=== PATIENT | male | born 1935 | race Caucasian/White ===

== ENCOUNTER 2017-04-02 09:27 | Outpatient (CLI) | payer MEDICARE, OTHER ==
--- NOTE | ~2017-04-02 | HEMODYNAMI ---
PATIENT:CROW WALKER MEDICAL RECORD: [id number] : 33 LOCATION:[facility] ADMISSION DATE: 04/02/17 Generatedon:04/02/201711:51 Patient name: CROW WALKER Patient #: [id number] SSN: DO B: 1935 Date of study: 04/02/2017 Page: Of Hemodynamic Procedure Report Patient Data Patient Demographics Procedure consent was obtained First Name: CROW Gender: Male Last Name: AARON : 1935 Middle Initial: [place] Age: 81 year(s) Patient #: [id number] Race: Additional ID: [id number] Contact details [address]: [address] [place] [address] State: [place] City: [place] Zip code: [address] Past Medical History History of disease Date Diagnosis Comments CAD Previous HI Hypertension Allergies Allergen Reaction Date Comments Reported Other allergy 05/19/2016 PCN, Streptokinase, Iodine Iodine 05/19/2016 Penicillins 05/19/2016 Other allergy 04/02/2017 iodine, Penicillin, Streptokinase, Luis Miguel Inhibitors Admission Admission Data Admission Date: 04/02/2017 Admission Time: 9:27 Arrival Date: 04/02/2017 Arrival Time: 0:00 Admit Source: Other Height (in.): 70 BSA: 2.1 (m2) Height (cm.): 177.8 BMI: 29.13 (kg/m2) Weight (lbs.): 203 Weight (kg.): 92.08 Lab Results Lab Result Date: 04/02/2017 Lab Result Time: 0:00 Biochemistry Name Units Result Min Max BUN mg/dl 21 --(----)-* 7 18 Creatinine mg/dl 1.4 --(----)*- 0.6 1.3 CBC Name Units Result Min Max Hemoglobin g/dl 14.2 --(*---)-- 13.5 17.5 Procedure Procedure Types Cath Procedure Diagnostic Procedure [facility] w/Coronaries FFR/IVUS Intra-Coronary IVUS Initial PCI Procedure Coronary Stent Initial Miscellaneous Procedures Moderate Sedation up to 15 minutes Procedure Description Procedure Date Procedure Date: 04/02/2017 Procedure Start Time: 11:32 Procedure End Time: 11:47 Procedure Staff Name Function Slick Dietz MD Performing Physician Billie Mercado RT Scrub Ailin Romero RT Monitor Ruy Pepe RN Nurse Indication Angina Procedure Data Cath Procedure Fluoroscopy Diagnostic fluoroscopy Total fluoroscopy Time: 2.8 time: 2.8 min min Diagnostic fluoroscopy Total fluoroscopy dose: 299 dose: 299 mGy mGy Contrast Material Contrast Material Type Amount (ml) Isovue 300 69 Entry Location Entry Primary Successful Side Size Upsize Upsize Entry Closure Reinoso ccessful Closure Location (Fr) 1 (Fr) 2 (Fr) Remarks Device Remarks Radial Right 6 Fr Mechanical artery Short Compression Estimated blood loss: 5 ml Diagnostic catheters Device Type Used For End Catheter Placement Diagnostic Terumo 5Fr Multi-vessel Yale 110cm catheter Angiography Procedure Complications No complications Procedure Medications Medication Administration Route Dosage Oxygen NC 2 l/min Heparin Flush Bag added to field 2 bags (1000units/500ml NS) 0.9% NaCl I.V. 100 ml/hr Fentanyl I.V. 50 mcg Versed I.V. 1 mg Radial Cocktail added to field 1 syringe (Verapomil 2mg/Nitro 400mcg/Heparin 1500units) Radial Cocktail I.A. 1 syringe (Verapomil 2mg/Nitro 400mcg/Heparin 1500units) Heparin Bolus I.V. 4000 units Integrilin (Bolus I.V. 8.5 ml 2mg/ml) Integrilin (Bolus wasted 1.5 ml 2mg/ml) Plavix P.O. 600 mg Hemodynamics Rest BSA: 2.1 (m2) HGB: 14.2 (g/dl) O2 Consumption: Estimated: 236.76 (ml/min) O2 Con sumption indexed: Estimated:112.74 (ml/min/m) Heart Rate: 67 (bpm) Pressure Samples Time Site Value (mmHg) Purpose Heart Use Rate(bpm) 11:35 LV 147/12,9 Snapshot 81 Snapshots Pre Cath Intra NCS Post Cath Vital Signs Time Heart Resp SPO2 NIBP (mmHg) Rhythm Pain Sedation Rate (ipm) (%) Status Level (bpm) 11:22:18 79 18 100 187/104(148) NSR 0 (11) 10(A) , No pain 11:26:59 77 16 100 179/103(152) NSR 0 (11) 10(A) , No pain 11:31:35 80 18 98 179/108(154) NSR 0 (11) 10(A) , No pain 11:35:57 81 16 96 144/94(126) NSR 0 (11) 9(A) , No pain 11:40:20 80 16 97 145/88(122) NSR 0 (11) 9(A) , No pain 11:44:44 78 17 99 157/89(133) NSR 0 (11) 9(A) , No pain 11:48:11 79 19 98 161/91(138) NSR 0 (11) 9(A) , No pain Medications Time Medication Route Dose Verified Delivered Reason Note s Effectiveness by by 11:24:35 Oxygen NC 2 l/min Slick Redmond Per physician J Luis Pepe RN 11:25:25 Heparin Flush added 2 bags Slick Redmond used for Bag to J Luis Pepe RN procedure (1000units/500ml field NS) 11:26:37 0.9% NaCl I.V. 100 Slick Redmond Per physician ml/hr J Luis Pepe RN 11:31:56 Fentanyl I.V. 50 mcg Slick Redmond for sedation J Luis Pepe RN 11:32:06 Versed I.V. 1 mg Slick Redmond for sedation J Luis Pepe RN 11:34:59 Radial Cocktail added 1 Slick Redmond used for (Verapomil to syringe J Luis Pepe RN procedure 2mg/Nitro field 400mcg/Heparin 1500units) 11:35:04 Radial Cocktail I.A. 1 Slick Kruger for (Verapomil syringe J Luis Dietz MD vasodilation 2mg/Nitro 400mcg/Heparin 1500units) 11:43:10 Heparin Bolus I.V. 4000 Slick Redmond for units J Luis Pepe RN anticoagulation 11:43:22 Integrilin I.V. 8.5 ml Slick Redmond for (Bolus 2mg/ml) J Luis Pepe RN antiplatelet therapy 11:43:31 Integrilin wasted 1.5 ml Slick Redmond for (Bolus 2mg/ml) J Luis Pepe RN antiplatelet therapy 11:49:03 Plavix P.O. 600 mg Slick Pepe RN antiplatelet therapy Procedure Log Time Note 10:41:57 Patient Height : 177.8 inches 10:41:59 Patient Weight : 92.08 lbs 10:42:02 Admit Source: Other 10:42:05 Arrival Date: 04/02/2017 12:00:00 AM 10:51:53 Diagnostic Cath Status : Elective 10:52:09 Indication : Angina 10:52:13 Ailin Nick RT(R) sent for patient. Start room use. 10:52:14 Time tracking: Regular hours 10:52:19 Plan of Care:Hemodynamics will remain stable., Cardiac rhythm will remain stable., Comfort level will be maintained., Respiratory function will remain adequate., Patient/ family verbilizes understanding of procedure., Procedure tolerated without complication., Recovers from procedure without complications.. 11:12:49 Patient received from Pre/Post Procedure Room to [facility] 3 Alert and oriented. Tansferred to table in Supine position. 11:12:50 Warm blankets applied, and charlotte hugger turned on for patient comfort. 11:12:51 Correct patient and procedure confirmed by team. 11:12:52 Signed procedure consent form obtained from patient. 11:20:54 ECG and BP/O2 sat monitors applied to patient. 11:20:55 Vital chart was started 11:21:02 Baseline sample Acquired. 11:21:08 Rhythm: sinus rhythm 11:21:10 Full Disclosure recording started 11:21:57 H&P Date Dictated: 03/29/2017 Within 30 days and on chart., H&P Addendum completed by physician on day of procedure. (MUST COMPLETE FOR ALL OUTPATIENTS). 11:22:11 Pre-procedure instructions explained to patient. 11:22:12 Pre-op teaching completed and patient verbalized understanding. 11:22:13 Family in waiting room. 11:22:15 Patient NPO since Midnight. 11:24:35 Oxygen 2 l/min NC was administered by Ruy Pepe RN; Per physician; 11:25:25 Heparin Flush Bag (1000units/500ml NS) 2 bags added to field was administered by Ruy Pepe RN; used for procedure; 11:26:29 Patient allergic to Other allergyiodine, Penicillin, Streptokinase, Luis Miguel Inhibitors 11:26:32 Is the patient allergic to Iodine/contrast media? Yes. 11:26:33 Was the patient premedicated? Yes 11:26:34 Is patient on blood thinner?No 11:26:36 Patient diabetic? No. 11:26:37 0.9% NaCl 100 ml/hr I.V. was administered by Ruy Pepe RN; Per physician; 11:26:39 Previous problem with sedation/anesthesia? No ? 11:26:41 Snore? Yes 11:26:43 Sleep apnea? No 11::44 Deviated septum? No 11:26:45 Opens mouth fully? Yes 11:26:46 Sticks out tongue? Yes 11::53 Airway obstruction? Yes emphysema, pulmonary fibrosis 11:27:18 Dentures? Yes in tight 11:27:22 Pre procedure: right dorsailis pedis pulse 1+ Palpable, but thready & weak; easily obliterated 11:27:24 Pre procedure: left dorsailis pedis pulse 1+ Palpable, but thready & weak; easily obliterated 11:27:26 Patient pain scale 0/10 ?. 11:27:44 IV patent on arrival in left forearm with 0.9% NaCl at [facility]. 11:29:40 Lab Result : BUN 21 mg/dl 11::40 Lab Result : Creatinine 1.4 mg/dl 11::40 Lab Result : Hemoglobin 14.2 g/dl 11::57 Lab results completed and on chart. 11:30:00 Right Radial & Right Groin area was prepped with chlora-prep and draped in sterile fashion 11:30: Alarms reviewed by R. N. 11:30: Sharps counted by scrub and verified by R.N. 11:30:03 Physician arrived 11:30:03 --------ALL STOP TIME OUT------ 11:30:04 Final Timeout: patient, procedure, and site verified with staff and physician. All members of the team are in agreement. 11:30:07 Right Radial & Right Groin site verified by team. 11:30:09 Physical assessment completed. ASA score P 2 - A patient with mild systemic disease as per Slick Dietz MD. 11:30:12 Sedation plan: IV Moderate Sedation Versed, Fentanyl 11:30:17 Procedure started. 11:31:56 Fentanyl 50 mcg I.V. was administered by Ruy Pepe RN; for sedation; 11:32:06 Versed 1 mg I.V. was administered by Ruy Pepe RN; for sedation; 11:32:19 Use device set Radial Dx 11:32:20 Acist Syringe opened to sterile field. 11:32:20 Medline Cath Pack opened to sterile field. 11:32:21 Bag Decanter opened to sterile field. 11:32:21 Terumo 6Fr Slender Glidesheath opened to sterile field. 11:32:21 St Mason 260cm J .035 wire opened to sterile field. 11:32:22 Acist Hand Control opened to sterile field. 11:32:22 Acist Manifold opened to sterile field. 11:32:22 Tegaderm 4 x 4 opened to sterile field. 11:32:23 MBrace Wrist Support opened to sterile field. 11:32:30 Local anesthetic to right radial artery with Lidocaine 2% by Slick Dietz MD.INITIAL ACCESS ONLY 11:32:56 A 6 Fr Short sheath was inserted into the Right Radial artery 11:34:52 A Diagnostic Terumo 5Fr Yale 110cm catheter was advanced over the wire and used for Multi-vessel Angiography. 11:34:59 Radial Cocktail (Verapomil 2mg/Nitro 400mcg/Heparin 1500units) 1 syringe added to field was administered by Ruy Pepe RN; used for procedure; 11:35:04 Radial Cocktail (Verapomil 2mg/Nitro 400mcg/Heparin 1500units) 1 syringe I.A. was administered by Slick Dietz MD; for vasodilation; 11:35:38 LV hemodynamics recorded. 11:35:40 LV gram done using SHANKAR 11:35:46 Injector settings: Ml/sec: 5, Volume: 15, 11:35:52 EF : 50 % 11:36:16 RCA angiography performed. 11:36:19 Injector settings: Ml/sec: 3, Volume: 6, 11:37:39 Cordis 6FR XBLAD 3.5 SH guide catheter opened to sterile field. 11:37:44 Catheter removed. 11:37:53 6 Fr xblad 3.5 sh guide catheter was inserted over the wire 11:38:28 LCA angiography performed. 11:38:30 Injector settings: Ml/sec: 3, Volume: 6, 11:39:44 Newport Hitchcock Eagleye IVUS Catheter opened to sterile field. 11:39:45 Diaz Whisper J 300cm 0.014 guide wire opened to sterile field. 11:39:45 Tongal BasixCompak Inflation Kit opened to sterile field. 11:39:56 whisper wire advanced. 11:39:58 Wire advanced across lesion. 11:40:01 IVUS catheter advanced over wire. 11:41:32 IVUS pass to LAD lesion performed. 11:41:37 IVUS catheter removed over wire. 11:43:10 Heparin Bolus 4000 units I.V. was administered by Ruy Pepe RN; for anticoagulation; 11:43:22 Integrilin (Bolus 2mg/ml) 8.5 ml I.V. was administered by Ruy Pepe RN; for antiplatelet therapy; 11:43:25 Inflation Number: 1 A Retracetronic Integrity 3.5 X 12 stent was prepped and advanced across the Prox LAD. The stent was deployed at 19 [place] for 0:10 (min:sec). 11:43:31 Integrilin (Bolus 2mg/ml) 1.5 ml wasted was administered by Ruy Pepe RN; for antiplatelet therapy; 11:43:42 Stent catheter was removed intact over wire. 11:43:45 Wire removed. 11:43:45 Guide catheter removed. 11:44:10 Terumo TR Band Standard opened to sterile field. 11:44:34 Sheath removed intact; hemostasis achieved with Mechanical Compression to the Right Radial artery. 11:44:44 Procedure ended.(Physican Out) 11:46:10 Fluoroscopy time 02.80 minutes. 11:46:16 Fluoroscopy dose: 299 mGy 11:46:16 Flurop Dose total: 299 11:46:19 Contrast amount:Isovue 300 69ml. 11:46:20 Sharps counted by scrub and verified by R.N. 11:46:24 TR band inflated with 10cc of air. 11:46:25 Insertion/operative site no bleeding no hematoma. 11:46:30 Post right radial artery:stable 11:46:32 Post Procedure Pulses reassessed and unchanged 11:46:34 Post procedure rhythm: unchanged. 11:46:37 Estimated blood loss: 5 ml 11:46:38 Post procedure instruction explained to patient.Patient verbalizes understanding. 11:46:38 Patient needs reinforcement of post procedure teaching. 11:46:56 Procedure type changed to Cath procedure, Diagnostic procedure, LHC, [facility] w/Coronaries, FFR/IVUS, Intra-Coronary IVUS Initial, PCI procedure, Coronary Stent Initial, Miscellaneous Procedures, Moderate Sedation up to 15 minutes 11:46:58 Procedure and supply charges have been captured, reviewed, submitted and are correct. 11:47:02 Procedure Complication : No complications 11:47:05 Vital chart was stopped 11:47:05 See physician's report for complete and final results. 11:47:08 Report given to Pre/Post Procedure Room. 11:47:13 Patient transfered to Pre/Post Procedure Room with Stretcher. 11:47:15 Procedure ended. 11:47:15 Full Disclosure recording stopped 11:47:23 ACC-PCI Only Patient was given prescriptions, or instructed by Slick Dietz MD to start/continue the following medications upon discharge: Plavix 11:47:25 End room use (Document Last) 11:49:03 Plavix 600 mg P.O. was administered by Ruy Pepe RN; for antiplatelet therapy; Intervention Summary Intervention Notes Time ActionType Lesion and Equipment Action# Pressure Duration Attributes Used 11:43:25 Place stent Prox LAD Medtronic 1 19 00:10 Integrity 3.5 X 12 stent Device Usage Item Name Manufacture Quantity Catalog Hospital Part Current Minimal Lot# / Number Charge Number Stock Stock Serial# Code Acist Acist 1 92689 762493 627429 083575 20 Syringe Medical Systems Inc Medline Cardinal 1 [id number] 008244 20913 179479 5 Cath Pack Health Bag Microtek 1 2001S 118840 90895 861512 5 [employer]. Terumo 6Fr Terumo 1 [id number] 198072 919531 332040 [address] St Mason 1 699970 226715 907140 635304 30 260cm J .035 wire Acist Hand Acist 1 71956 258770 905925 092502 5 Control WiOffer Systems Inc Acist Acist 1 60275 491620 339681 639896 5 Gumroad [employer] Systems Twijector Tegaderm 4 3M 1 1626W 495377 675088 663431 5 x 4 MBrace Advanced 1 140-0250-00 572894 93887 929322 5 Wrist Vascular Support Dynamics Diagnostic Terumo 1 20-6676 293078 869200 262882 5 Terumo 5Fr Yale 110cm catheter Cordis 6FR Cardinal 1 [id number] 377678 610375 062860 3 XBLAD 3.5 Health SH guide catheter Newport Newport 1 [id number] 549045 445406 070783 8 Hitchcock Eagleye IVUS Catheter Diaz Diaz 1 [id number] 929476 796772 107862 5 Whisper J Vascular 300cm 0.014 guide wire Merit Merit 1 [id number] 515080 992259 238996 15 BasixCompak Medical Inflation Kit Medtronic Medtronic 1 [id number] 980366 504014 5 [id number] Integrity 3.5 X 12 stent Terumo TR Terumo 1 [id number] 462741 049654 824024 40 Band Standard Signature Audit Yale Stage Time Signature Unsigned Intra-Procedure 04/02/2017 Ailin Romero 11:51:33 AM RT(R) Signatures Monitor : Ailin Romero RT Signature : Date : Time : [facility] [address] [place] [address]
[~2017-04-02 09:27] MED LIST: ASPIRIN EC81 MG PO; BETAPACE 120 M120 MG PO; GLUCOPHAGE850 MG PO; MEVACOR40 MG PO; MIRALAX17 GM PO; MULTI-DAY VITAM1 TAB PO; NORVASC10 MG PO; PLAVIX75 MG PO; PREDNISONE20 MG; RYTHMOL150 MG PO; STOOL SOFTENER PO; TENEX1 MG PO
[2017-04-02 10:03] VITALS: BP 190/101; BMI 28.7
[2017-04-02 10:17] LABS: HEMATOCRIT 42.7 % (42.0-54.0); HEMOGLOBIN 14.2 g/dL (13.5-17.5); MCH 32.7 pg (26.0-34.0); MCHC 33.3 g/dL (31.0-37.0); MCV 98.4 fL (80.0-100.0); MEAN PLATELET VOLUME 9.8 fL (7.4-10.4); PLATELET COUNT 216 10x3/uL (130-400); RBC 4.34 10x6/uL (4.20-6.10); RDW 17.2 % (11.5-14.5)
[2017-04-02 10:43] LABS: ANION GAP 13.2 mmol/L (8-16); CALCIUM 9.6 mg/dL (8.5-10.1); CARBON DIOXIDE 26.1 mmol/L (21.0-32.0); CREATININE - SERUM 1.4 mg/dL (0.6-1.3); POTASSIUM - SERUM 4.3 mmol/L (3.5-5.1)
[2017-04-02 10:45] LABS: LYMPHOCYTES 55 % (15-50); MONOCYTES 1 % (2-11); NEUTROPHILS 44 % (40-80); PLATELET ESTIMATE NORMAL; SMUDGE CELLS OCC
--- NOTE | 2017-04-02 12:00 | NUR ---
1200 RECIEVED TO ROOM VIA STRETCHER FROM [employer] E[employer] PACKER WITH REPORTS OF ONE STENT TO THE LAD. TR BAND TO R/WRIST WITH SMALL AMOUNT OF BLEEDING NOTED. STAFF TO INSTILL 5 CC AIR FOR A TOTAL OF 15 CC TO TR BAND WILL MONITOR FOR BLEEDING
[2017-04-02] MEDS ORDERED: BAYER CHEWABLE81 MG PO (12:12)
[2017-04-02] MEDS ORDERED: PLAVIX75 MG PO (12:12)
--- NOTE | 2017-04-02 12:15 | NUR ---
TR BAND TO R/WRIST CDI NO BLEEDING NO HEMATOMA NOTED. HR 77 BP 178/96 CHEST PAIN IS DENIED O2 AT 6 LITERS NASAL NO DISTRESS NO COMPLAINTS
--- NOTE | 2017-04-02 13:09 | OP ---
PATIENT NAME: CROW WALKER MEDICAL RECORD: [id number] :33 LOCATION:D.CAT ADMISSION DATE: SURGEON: IRENE CROCKETT MD DATE OF OPERATION: 04/02/2017 PROCEDURES: 1. PTCA stent LAD. 2. Intravascular ultrasound. 3. Left heart catheterization. 4. Selective coronary angiography. 5. Left ventriculogram. INDICATION: Angina and coronary artery disease. PROCEDURE IN DETAIL: After informed consent was obtained and after a detailed explanation of the risks, benefits as well as alternative therapies, the patient elected to proceed with angiogram and angioplasty. The right radial area was prepped and draped in normal sterile fashion. Right radial artery was cannulated via modified Seldinger technique with placement of 6-Bruneian sheath. All catheters exchanged through this sheath. FINDINGS: Left ventriculogram was performed in standard 30-degree SHANKAR view, reveals good cardiac wall motion throughout all segments. Overall ejection fraction 50%. SELECTIVE CORONARY ANGIOGRAPHY: 1. Left main showed no significant angiographic disease. 2. Left anterior descending has 80% stenosis proximally confirmed by intravascular ultrasound. 3. Left circumflex has moderate irregularities, but no flow-limiting stenosis. Previously placed stents is widely patent. 4. Right coronary has moderate irregularities, but no flow-limiting stenosis. Previously placed stents are widely patent. PTCA STENT OF THE LAD: The stent used was a 3.5 x 12 mm Integrity. Result was 0% residual stenosis. OVERALL IMPRESSION: Successful percutaneous transluminal coronary angioplasty stent of the left anterior descending going from 80+ percent initial stenosis to 0% residual. TRANSINT:[id number] Voice Confirmation ID: [id number] DOCUMENT ID: [id number] IRENE CROCKETT MD at 1309 CC: [id number] DICTATION DATE: 04/02/17 1148 [employer] PRODUCTION ASSOCIATE: 04/02/17 [address] [place] [address]
--- NOTE | 2017-04-02 14:22 | NUR ---
VOIDED 400CC VIA URINAL, R WRIST REMAINS C/D/I W NO C/O CHEST PAIN. PULSES PALP X 4. SON AT BEDSIDE.
--- NOTE | 2017-04-02 15:20 | NUR ---
1510 2CC AIR REMOVED FROM R WRIST TR BAND. WILL MONITOR FOR BLEEDING. SITTING UP EATING SANDWICH.
--- NOTE | 2017-04-02 15:50 | NUR ---
2CC AIR REMOVED FROM R WRIST TR BAND. PIV REMOVED FROM LEFT FOREARM WITH BANDAID APPLIED. UP TO BEDSIDE TO DRESS WITH ASSIST FROM DAUGHTER.
--- NOTE | 2017-04-02 15:57 | NUR ---
AMBULATED TO BATHROOM ON HOME OXYGEN. BACK TO BEDSIDE. TR BAND WEANED, TEGADERMA ND 2X2 APPLIED. D/C INSTRUCTIONS DISCUSSED WITH PATIENT AND DAUGHTER AT BEDSIDE. WHEELED OUT VIA WHEELCHAIR.
== END 2017-04-02 15:58 | disposition home or self-care (01) ==
LOC: D.CATH 09:27
PROVIDERS: Internal Medicine Interventional Cardiology
DX: I25.119 Atherosclerotic heart disease of native coronary artery with unspecified angina pectoris (principal); R06.02 Shortness of breath; I07.1 Rheumatic tricuspid insufficiency; Z95.0 Presence of cardiac pacemaker; R53.83 Other fatigue; Z01.812 Encounter for preprocedural laboratory examination

== ENCOUNTER 2018-02-03 14:11 | Outpatient (CLI) | payer MEDICARE, OTHER ==
[~2018-02-03] VITALS: Ht 177.8 cm; Wt 94.5 kg
--- NOTE | ~2018-02-03 | DS ---
PATIENT:CROW COTE :33 MEDICAL RECORD: [id number] DISCHARGE SUMMARY ADMISSION DATE: 02/03/18 DISCHARGE DATE: 02/04/18 DIAGNOSES: 1. Angina. 2. PTCA LAD for in-stent restenosis this admission. 3. Bronchitis. HOSPITAL COURSE: Mr. Cote presents with shortness of breath, cough as well as anginal symptomatology, found to have in-stent restenosis in the mid LAD, underwent successful high pressure PTCA of this. No further anginal symptomatology, started on Augmentin for his bronchitis. He will follow up with [facility] in 3[facility]4 weeks. TRANSINT:[id number] Voice Confirmation ID: [id number] DOCUMENT ID: [id number] IRENE CROCKETT MD at 1752 CC: [id number] DICTATION DATE: 02/04/18 0758 DIRECT MARKETING INTERN: 02/04/18 1259 DIS IN 02/04/18 [id number] [place] [address]
--- NOTE | ~2018-02-03 | HEMODYNAMI ---
PATIENT:CROW WALKER MEDICAL RECORD: [id number] : 33 LOCATION:[facility] D.2119 ADMISSION DATE: 02/03/18 Generatedon:02/03/201815:54 Patient name: CROW WALKER Patient #: [id number] SSN: DO B: 1935 Date of study: 02/03/2018 Page: Of Hemodynamic Procedure Report Patient Data Patient Demographics Procedure consent was obtained First Name: CROW Gender: Male Last Name: AARON : 1935 [facility] Initial: RADHA Age: 82 year(s) Patient #: [id number] Race: Additional ID: [id number] Contact details [address]: [address] [place] [address] State: [place] City: [place] Zip code: [address] Past Medical History History of disease Date Diagnosis Comments CAD Previous [place] Hypertension Allergies Allergen Reaction Date Comments Reported Other allergy 05/19/2016 PCN, Streptokinase, Iodine Iodine 05/19/2016 Penicillins 05/19/2016 Other allergy 04/02/2017 iodine, Penicillin, Streptokinase, Luis Miguel Inhibitors Admission Admission Data Admission Date: 02/03/2018 Admission Time: 14:11 Room #: 2119 Procedure Procedure Types Cath Procedure Diagnostic Procedure [facility] w/Coronaries Sedation Charges Moderate Sedation up to 15 minutes PCI Procedure PTCA PTCA Initial Procedure Description Procedure Date Procedure Date: 02/03/2018 Procedure Start Time: 15:34 Procedure End Time: 15:53 Procedure Staff Name Function Slick Dietz MD Performing Physician Ruy Pepe RN Nurse Davey Cordova RT Scrub Billie Mercado RT Monitor Procedure Data Cath Procedure Fluoroscopy Diagnostic fluoroscopy Total fluoroscopy Time: 3.2 time: 3.2 min min Diagnostic fluoroscopy Total fluoroscopy dose: 829 dose: 829 mGy mGy Contrast Material Contrast Material Type Amount (ml) Isovue 300 87 Entry Location Entry Primary Successful Side Size Upsize Upsize Entry Closure Reinoso ccessful Closure Location (Fr) 1 (Fr) 2 (Fr) Remarks Device Remarks Radial Right 6 Fr Mechanical tr artery Short Compression Estimated blood loss: 10 ml Diagnostic catheters Device Type Used For End Catheter Placement DIAGNOSTIC Arcadia 110cm 5 Procedure Fr catheter ([id number]) Procedure Complications No complications Procedure Medications Medication Administration Route Dosage Oxygen NC 6 l/min Heparin Flush Bag added to field 2 bags (1000units/500ml NS) 0.9% NaCl I.V. 100 ml/hr Radial Cocktail added to field 1 syringe (Verapomil 2mg/Nitro 400mcg/Heparin 1500units) Fentanyl I.V. 25 mcg Versed I.V. 0.5 mg Radial Cocktail I.A. 1 syringe (Verapomil 2mg/Nitro 400mcg/Heparin 1500units) Heparin Bolus I.V. 4000 units Integrilin (Bolus I.V. 8.5 ml 2mg/ml) Integrilin (Bolus I.V. 1.5 ml 2mg/ml) Hemodynamics Rest Heart Rate: 101 (bpm) Pressure Samples Time Site Value (mmHg) Purpose Heart Use Rate(bpm) 15:36 LV 124/13,12 Snapshot 96 Gradients Valve Time Site Site Mean SEP/DFP Peak To Heart Use 1 2 (mmHg) (sec/min) Peak Rate (mmHg) (bpm) Aortic 15:36 LV AO 98 Snapshots Pre Cath Intra NCS Post Cath Vital Signs Time Heart Resp SPO2 NIBP (mmHg) Rhythm Pain Sedation Rate (ipm) (%) Status Level (bpm) 15:26:21 90 17 87 181/97(165) NSR 0 (11) 10(A) , No pain 15:30:39 94 16 87 177/106(156) NSR 0 (11) 10(A) , No pain 15:35:01 101 16 90 175/118(153) NSR 0 (11) 10(A) , No pain 15:39:25 92 17 90 152/89(138) NSR 0 (11) 9(A) , No pain 15:44:53 93 17 90 152/93(136) NSR 0 (11) 9(A) , No pain 15:50:20 90 16 89 166/92(150) NSR 0 (11) 9(A) , No pain Medications Time Medication Route Dose Verified Delivered Reason Note s Effectiveness by by 15:18:42 Oxygen NC 6 l/min Slick Redmond Per physician J Luis Pepe RN 15:18:52 Heparin Flush added 2 bags Slick Howelly used for Bag to JLuis Pepe RN procedure (1000units/500ml field NS) 15:19:01 0.9% NaCl I.V. 100 Slick Ruy Per physician ml/hr J Luis Pepe RN 15:21:36 Radial Cocktail added 1 Slick Ruy used for (Verapomil to syringe J Luis Pepe RN procedure 2mg/Nitro field 400mcg/Heparin 1500units) 15:33:38 Fentanyl I.V. 25 mcg Slick Redmond for sedation J Luis Pepe RN 15:33:44 Versed I.V. 0.5 mg Slick Howelly for sedation J Luis Pepe RN 15:35:10 Radial Cocktail I.A. 1 Slick Ruy for (Verapomil syringe J Luis Pepe RN vasodilation 2mg/Nitro 400mcg/Heparin 1500units) 15:43:11 Heparin Bolus I.V. 4000 Slick Redmond for units J Luis Pepe RN anticoagulation 15:43:22 Integrilin I.V. 8.5 ml Slick Redmond Per physician (Bolus 2mg/ml) J Luis Pepe RN 15:43:34 Integrilin I.V. 1.5 ml Slick Howelly Per physician (Bolus 2mg/ml) J Luis Pepe RN Procedure Log Time Note 14:40:32 Davey Cordova RT(R) (CV) sent for patient. Start room use. 14:55:33 Time tracking: Regular hours (M-F 7:00 - 5:00) 14:55:36 Plan of Care:Hemodynamics will remain stable., Cardiac rhythm will remain stable., Comfort level will be maintained., Respiratory function will remain adequate., Patient/ family verbilizes understanding of procedure., Procedure tolerated without complication., Recovers from procedure without complications.. 15:10:09 Patient received from PCU to [facility] 2 Alert and oriented. Tansferred to table in Supine position. 15:10:11 Warm blankets applied, and charlotte hugger turned on for patient comfort. 15:10:11 Correct patient and procedure confirmed by team. 15:10:12 Signed procedure consent form obtained from patient. 15:10:13 ECG and BP/O2 sat monitors applied to patient. 15:18:42 Oxygen 6 l/min NC was administered by Ruy Pepe RN; Per physician; 15:18:52 Heparin Flush Bag (1000units/500ml NS) 2 bags added to field was administered by Ruy Pepe RN; used for procedure; 15:19:01 0.9% NaCl 100 ml/hr I.V. was administered by Ruy Pepe RN; Per physician; 15:19:02 Vital chart was started 15:20:44 Baseline sample Acquired. 15:20:52 Rhythm: sinus tachycardia 15:20:53 Full Disclosure recording started 15:21:02 H&P Date Dictated: 02/03/2018 Within 30 days and on chart.. 15:21:05 Pre-procedure instructions explained to patient. 15:21:05 Pre-op teaching completed and patient verbalized understanding. 15:21:08 Family in patients room. 15:21:10 Patient NPO since Midnight. 15:21:12 Is the patient allergic to Iodine/contrast media? Yes. 15:21:13 Was the patient premedicated? Yes 15:21:14 Is patient on blood thinner?Yes 15:21:16 ACC The patient was administered the following blood thiners within the last 24 hours: ACCPlavix 15:21:22 Patient diabetic? No. 15:21:26 Previous problem with sedation/anesthesia? No ? 15:21:28 Snore? Yes 15:21:29 Sleep apnea? No 15:21:30 Deviated septum? No 15:21:31 Opens mouth fully? Yes 15:21:32 Sticks out tongue? Yes 15:21:36 Radial Cocktail (Verapomil 2mg/Nitro 400mcg/Heparin 1500units) 1 syringe added to field was administered by Ruy Pepe RN; used for procedure; 15:21:37 Airway obstruction? Yes COPD 15:21:42 Dentures? No ? 15:22:51 Patient pain scale 0/10 ?. 15:23:01 IV patent on arrival in left forearm with 0.9% NaCl at [facility]. 15:23:07 Lab results completed and on chart. 15:23:20 Right Radial & Right Groin area was prepped with chlora-prep and draped in sterile fashion 15::23 Alarms reviewed by R. N. 15:23:24 Sharps counted by scrub and verified by R.N. 15:23:26 Physician paged 15:24:55 Physician arrived 15::56 --------ALL STOP TIME OUT------ 15:24:57 Final Timeout: patient, procedure, and site verified with staff and physician. All members of the team are in agreement. 15:24:59 Right Radial & Right Groin site verified by team. 15:25:03 Physical assessment completed. ASA score P 2 - A patient with mild systemic disease as per Slick Dietz MD. 15:25:08 Sedation plan: IV Moderate Sedation Medication:Versed, Fentanyl 15:25:13 Use device set Radial Dx or PCI 15:25:15 ACIST Syringe (21044) opened to sterile field. 15:25:16 Medline Cath Pack ([id number]) opened to sterile field. 15:25:16 Bag Decanter (2002S) opened to sterile field. 15:25:17 DIAGNOSTIC WIRE .035 260cm J wire (615166) opened to sterile field. 15:25:17 ACIST Hand Control (79194) opened to sterile field. 15:25:18 ACIST Manifold (24312) opened to sterile field. 15:25:18 Tegaderm 4 x 4 (1626W) opened to sterile field. 15:25:19 MBrace Wrist Support ([id number]) opened to sterile field. 15:25:23 SHEATH 6Fr Prelude Radial ([id number]) opened to sterile field. 15:33:38 Fentanyl 25 mcg I.V. was administered by Ruy Pepe RN; for sedation; 15:33:44 Versed 0.5 mg I.V. was administered by Ruy Pepe RN; for sedation; 15:33:45 Procedure started. 15:33:53 Zero performed for pressure channel P1 15:33:58 Zero performed for pressure channel P1 15:34:13 Local anesthetic to right radial artery with Lidocaine 2% by Slick Dietz MD.INITIAL ACCESS ONLY 15:34:26 A 6 Fr Short sheath was inserted into the Right Radial artery 15:34:41 A DIAGNOSTIC Arcadia 110cm 5 Fr catheter ([id number]) was advanced over the wire and used for Procedure. 15:35:02 LV angiography performed. 15:35:10 Radial Cocktail (Verapomil 2mg/Nitro 400mcg/Heparin 1500units) 1 syringe I.A. was administered by Ruy Pepe RN; for vasodilation; 15:36:32 EF : 30 % 15:36:39 LCA angiography performed. 15:38:21 RCA angiography performed. 15:39:46 Catheter removed. 15:39:51 GUIDE 6FR EBU 4.0 guide catheter ([id number]) opened to sterile field. 15:40:03 LCA angiography performed. 15:41:07 INFLATOR Merit BasixCompak (YR8702) opened to sterile field. 15:41:09 CHOICE PT Extra Support 182cm wire ([id number]) opened to sterile field. 15:43:11 Heparin Bolus 4000 units I.V. was administered by Ruy Pepe RN; for anticoagulation; 15:43:14 Inflate balloon Inflation number: 1 A EUPHORA 2.5 x 15 Balloon ([id number]) was prepped and advanced across the Dist LAD, then inflated to 15 CAM[place] for 0:06 (min:sec). 15:43:22 Integrilin (Bolus 2mg/ml) 8.5 ml I.V. was administered by Ruy Pepe RN; Per physician; 15:43:23 Inflation number: 2 The EUPHORA 2.5 x 15 Balloon ([id number]) was reinflated across the Dist LAD, to 15 CAMDEN for 0:05 (min:sec). 15:43:34 Integrilin (Bolus 2mg/ml) 1.5 ml I.V. was administered by Ruy Pepe RN; Per physician; 15:43:52 Inflation number: 3 The EUPHORA 2.5 x 15 Balloon ([id number]) was reinflated across the Dist LAD, to 21 CAMDEN for 0:07 (min:sec). 15:44:43 Catheter removed. 15:44:52 TR BAND Large ([id number]) opened to sterile field. 15:45:37 Sheath removed intact; hemostasis achieved with Mechanical Compression to the Right Radial artery. 15:45:40 Procedure ended.(Physican Out) 15:45:58 Fluoroscopy time 03.20 minutes. 15:46:04 Fluoroscopy dose: 829 mGy 15:46:04 Flurop Dose total: 829 15:46:08 Contrast amount:Isovue 300 87ml. 15:46:10 Sharps counted by scrub and verified by R.N. 15:46:40 TR band inflated with 15cc of air. 15:46:42 Insertion/operative site no bleeding no hematoma. 15:46:45 Post Procedure Pulses reassessed and unchanged 15:47:10 Post procedure rhythm: unchanged. 15:47:14 Estimated blood loss: 10 ml 15:47:18 Post procedure instruction explained to patient.Patient verbalizes understanding. 15:47:42 Procedure type changed to Cath procedure, Diagnostic procedure, LHC, LHC w/Coronaries, Sedation Charges, Moderate Sedation up to 15 minutes, PCI procedure, PTCA, PTCA Initial 15:47:44 Procedure and supply charges have been captured, reviewed, submitted and are correct. 15:48:12 Procedure Complication : No complications 15:53:32 Vital chart was stopped 15:53:33 See physician's report for complete and final results. 15:53:44 Report given to [facility] II. 15:53:48 Patient transfered to Med II with Stretcher. 15:53:50 Procedure ended. 15:53:50 Full Disclosure recording stopped 15:53:53 End room use (Document Last) 15:54:06 ACC-PCI Only Patient was given prescriptions, or instructed by Slick Dietz MD to start/continue the following medications upon discharge: Plavix Intervention Summary Intervention Notes Time ActionType Lesion and Equipment Action# Pressure Duration Attributes Used 15:43:14 Inflate Dist LAD EUPHORA 1 15 00:07 balloon 2.5 x 15 Balloon ([id number]) 15:43:23 Reinflate Dist LAD EUPHORA 2 15 00:05 balloon 2.5 x 15 Balloon ([id number]) 15:43:52 Reinflate Dist LAD EUPHORA 3 21 00:07 balloon 2.5 x 15 Balloon ([id number]) Device Usage Item Name Manufacture Quantity Catalog Number Hospital Part Current M inimal Lot# / Charge Number Stock Stock Serial# Code ACIST Syringe Acist 1 80613 844587 111723 852509 2 0 (12118) Mint Inc Medline Cath Cardinal 1 [id number] 441130 35074 557373 5 Suncore Health ([id number]) Bag Decanter Microtek 1 133180 33652 831300 5 (2002S) Medical Inc. DIAGNOSTIC WIRE [facility] [place] 1 303972 078598 167444 877651 3 0 .035 260cm J wire (580228) ACIST Hand Acist 1 40031 073046 170511 508935 5 Control (87382) Medical Systems Inc ACIST Manifold Acist 1 05501 287797 227175 814621 5 (83927) Medical Systems Inc Tegaderm 4 x 4 3M 1 1626W 169379 607456 028892 5 (1626W) MBrace Wrist Advanced 1 140-0250-00 533835 23192 058753 5 Support Vascular (979155434) Dynamics SHEATH 6Fr Merit 1 [id number] 133306 960001 631826 5 Prelude Radial Medical ([id number]) DIAGNOSTIC Terumo 1 405013 485522 224979 585573 5 Arcadia 110cm 5 Fr catheter (082348) GUIDE 6FR EBU Medtronic 1 [id number] 796217 45702 497050 1 4.0 guide catheter (BK6ILG58) INFLATOR Merit Merit 1 KB8439 325872 617191 803360 1 5 AirCast Mobile (BJ1629) CHOICE PT Extra [place] 1 [id number] 217329 393882 229522 5 Support 182cm Scientific wire ([id number]) EUPHORA 2.5 x Medtronic 1 [id number] 919609 548980 437545 5 [id number] 15 Balloon ([id number]) TR BAND Large Terumo 1 [id number] 041033 877710 222203 4 0 ([id number]) Signature Audit [facility] Stage Time Signature Unsigned Intra-Procedure 02/03/2018 Billie Mercado 3:54:29 PM RT(R) Signatures Monitor : Billie Mercado Signature : RT Date : Time : [facility] [address] [place] [address]
--- NOTE | ~2018-02-03 | OP ---
PATIENT NAME: CROW WALKER MEDICAL RECORD: [id number] :33 LOCATION:D.M2 D.2119 ADMISSION DATE:02/03/18 SURGEON: IRENE CROCKETT MD DATE OF OPERATION: 02/03/2018 DATE OF SERVICE: 02/03/2018 PROCEDURES: 1. PTCA, LAD. 2. Left heart catheterization. 3. Selective coronary angiography. 4. Left ventriculogram. INDICATION: Chest pain compatible with angina. PROCEDURE IN DETAIL: After informed consent was obtained and after detailed description of risks, benefits as well as alternative therapies, the patient elected to proceed with angiogram and angioplasty. The right radial area was prepped and draped in normal sterile fashion. Right radial artery was cannulated via modified Seldinger technique with placement of 6-Amharic sheath. All catheters exchanged through this sheath. FINDINGS: Left ventriculogram was performed in standard 30-degree SHANKAR view, reveals global hypokinesis throughout all segments. Overall ejection fraction is 30%. SELECTIVE CORONARY ANGIOGRAPHY: 1. Left main is with no significant angiographic disease. 2. Left anterior descending has multiple previously placed stents. There is an area of greater than 70% in-stent restenosis in the distal vessel. 3. The left circumflex has previously placed stents. These are widely patent with no significant restenosis. No disease elsewise throughout the circumflex or its branches. 4. The right coronary has multiple previously placed stents. These are all widely patent with no significant restenosis. No disease elsewise at the RCA or its branches. PTCA OF THE LAD: The balloon used was a 2.5 Euphora. Multiple inflations were made up to 21 atmospheres, result was 0% residual stenosis. OVERALL IMPRESSION: Successful percutaneous transluminal coronary angioplasty for in-stent restenosis of the left anterior descending going from greater than 70% initial stenosis to 0% residual. TRANSINT:[id number] Voice Confirmation ID: [id number] DOCUMENT ID: [id number] IRENE CROCKETT MD at 1759 CC: [id number] DICTATION DATE: 02/03/18 1549 CONSULTING PSYCHOLOGIST: 02/03/18 1902 DIS IN 02/04/18 [facility] [address] [place] [address]
[2018-02-03 12:42] VITALS: BP 139/64
[2018-02-03 13:12] LABS: BASOPHILS 0.1 % (0-2); EOSINOPHILS 1.4 % (0-7); HEMATOCRIT 41.3 % (42.0-54.0); HEMOGLOBIN 13.5 g/dL (13.5-17.5); IMMATURE GRANULOCYTES 0.5 % (0-5); LYMPHOCYTES 51.9 % (15-50); MCH 33.7 pg (26.0-34.0); MCHC 32.7 g/dL (31.0-37.0); MEAN PLATELET VOLUME 10.3 fL (7.4-10.4); MONOCYTES 5.1 % (2-11); PLATELET COUNT 185 10x3/uL (130-400); RBC 4.01 10x6/uL (4.20-6.10); RDW 16.2 % (11.5-14.5)
[2018-02-03 13:15] LABS: ALBUMIN 3.1 g/dL (3.4-5.0); ALKALINE PHOSPHATASE 66 U/L (46-116); ALT (SGPT) 19 U/L (10-68); CALCIUM 8.4 mg/dL (8.5-10.1); CARBON DIOXIDE 28.5 mmol/L (21.0-32.0); CHLORIDE - SERUM 106 mmol/L (98-107); CREATININE - SERUM 0.9 mg/dL (0.6-1.3); POTASSIUM - SERUM 3.6 mmol/L (3.5-5.1); PROTEIN - SERUM 6.3 g/dL (6.4-8.2); SODIUM 141 mmol/L (136-145); UREA NITROGEN 18 mg/dL (7-18); eGFR NON AFRICAN AMERICAN 85 mL/min (90-120)
[2018-02-03 13:17] LABS: CALC OSMOLALITY 282 mosm/kg (275-300); CREATINE KINASE 20 UL (21-232); GLUCOSE 106 mg/dL (74-106); PRO BNP 1014 pg/mL (0-450); TROPONIN-I < 0.017 ng/mL (0.000-0.060)
[~2018-02-03 14:11] MED LIST changes: +BAYER CHEWABLE81 MG PO; +GLIMEPIRIDE1 MG PO; +NORVASC5 MG PO; +PEPCID40 MG PO; +STERAPRED DS 1210 MG PO
[2018-02-03 14:23] VITALS: BP 138/76
[2018-02-03 17:04] VITALS: BP 132/82; Ht 177.8 cm; Wt 94.5 kg
[2018-02-03 21:00] VITALS: BP 112/54
[2018-02-04 02:11] VITALS: BP 135/74
[2018-02-04 06:28] VITALS: BP 163/93
[2018-02-04 08:03] VITALS: BP 161/96
[2018-02-04] MEDS ORDERED: PLAVIX75 MG PO (08:57)
[2018-02-04] MEDS ORDERED: AUGMENTIN 500-11 TA1 PO (08:58)
== END 2018-02-04 09:49 | disposition home or self-care (01) ==
LOC: OBSVTIME → D.CATH 14:11 → D.ER 14:11 → OBSVTIME 14:11 → D.EDHOLD 14:11 → D.M2 14:11 → D.EDHOLD 14:32 → D.CATH 02-04 09:49 → D.M2 02-04 09:49
PROVIDERS: Family Medicine
DX: T82.857A Stenosis of other cardiac prosthetic devices, implants and grafts, initial encounter (principal); I25.110 Atherosclerotic heart disease of native coronary artery with unstable angina pectoris; I10 Essential (primary) hypertension; J40 Bronchitis, not specified as acute or chronic

== ENCOUNTER → 2018-10-01 19:42 | Outpatient (CLI) | payer MEDICARE, OTHER ==
[2018-09-02 12:52] VITALS: BMI 30.1
[~2018-10-01 19:42] MED LIST changes: +AUGMENTIN 500-11 TA1 PO; +IPRAT-ALBUT 0.5-3 ML UPD; +LEVAQUIN750 MG PO; +METOPROLOL TART25 MG PO; +PEPCID PO; +PREDNISONE10 MG PO
[2018-10-01 20:49] LABS: APPEARANCE CLEAR (CLEAR); BILIRUBIN NEGATIVE (NEGATIVE); COLOR YELLOW (YELLOW); GLUCOSE 1000 mg/dL (NEGATIVE); KETONE NEGATIVE (NEGATIVE); NITRITE NEGATIVE (NEGATIVE); PROTEIN NEGATIVE (NEGATIVE); UROBILINOGEN NORMAL (NORMAL)
== END | disposition home or self-care (01) ==
LOC: D.LABREF 19:42
PROVIDERS: ATTEND Internal Medicine
DX: J43.9 Emphysema, unspecified (principal)

== ENCOUNTER → 2018-10-20 10:47 | Outpatient (CLI) | payer MEDICARE, OTHER ==
[2018-09-02 12:52] VITALS: BMI 30.1
[2018-10-20 13:13] LABS: HEMATOCRIT 38.9 % (42.0-54.0); HEMOGLOBIN 12.5 g/dL (13.5-17.5); MCH 30.9 pg (26.0-34.0); MCHC 32.1 g/dL (31.0-37.0); MCV 96.3 fL (80.0-100.0); MEAN PLATELET VOLUME 9.7 fL (7.4-10.4); PLATELET COUNT 222 10x3/uL (130-400); RBC 4.04 10x6/uL (4.20-6.10); WBC 17.8 10x3/uL (4.8-10.8)
[2018-10-20 13:40] LABS: THYROID STIMULATING HORMONE 2.06 uIU/mL (0.36-3.74)
[2018-10-20 14:11] LABS: LYMPHOCYTES 55 % (15-50); MONOCYTES 1 % (2-11); NEUTROPHILS 43 % (40-80); PLATELET ESTIMATE NORMAL; ROULEAUX OCC
[2018-10-20 14:16] LABS: ERYTHROCYTE SEDIMENTATION RATE 5 mm/hr (0-20)
== END | disposition home or self-care (01) ==
LOC: D.RAD 10:30 → D.RT 11:00
PROVIDERS: ATTEND Internal Medicine Pulmonary Disease
DX: R06.02 Shortness of breath (principal)

== ENCOUNTER 2019-01-20 11:31 | Inpatient (IN) | payer MEDICARE, OTHER ==
[2019-01-20] VITALS (7 sets, daily range): BP systolic 103–133; BP diastolic 46–88; BMI 30.4
[~2019-01-20] VITALS: Ht 177.8 cm; Wt 97.0 kg
--- NOTE | ~2019-01-20 | CN ---
PATIENT NAME:CROW COTE MEDICAL RECORD: [id number] : 33 LOCATION:D.M3 D.1212 ADMIT DATE: 01/20/19 ACCOUNT: [id number] CONSULTING PHYSICIAN: FREDA TRIPATHI MD REFERRING PHYSICIAN: AILYN QUIGLEY MD DATE OF CONSULTATION: 01/21/2019 CONSULT REQUESTING PHYSICIAN: Ailyn Quigley MD REASON FOR CONSULTATION: Lszko-fj-nnzrgnn hypoxic respiratory failure. HISTORY OF PRESENT ILLNESS: Mr. Cote is an 83-year-old gentleman who has a history of idiopathic pulmonary fibrosis. He is on 6-7 liters oxygen at home, but according to the patient, he has worsening shortness of breath whenever he goes to the bathroom oxygen level would drop to 70s. Denies any fever and chill, no night sweats. He has a cough with whitish color sputum production. On evaluation in the ER, found out the patient has leukocytosis. Also, he has a positive D-dimer. REVIEW OF SYSTEMS: As in the history of present illness. PAST MEDICAL HISTORY: 1. COPD and emphysema. 2. Coronary artery disease. 3. History of pneumonia in the past. 4. Chronic hypoxic respiratory failure. 5. Idiopathic pulmonary fibrosis. PAST SURGICAL HISTORY: 1. He has appendectomy. 2. He has a cardiac catheterization and stent placement. 3. Status post pacemaker placement. ALLERGIES: HE IS ALLERGIC TO IV CONTRAST DYE, PENICILLIN, MICHEAL INHIBITOR, AND STREPTOKINASE. MEDICATIONS: He is on prednisone 10 mg daily. His all other medications are reviewed. PERSONAL AND SOCIAL HISTORY: The patient is a nonsmoker, nondrinker and he was a smoker in the past. FAMILY HISTORY: Noncontributory. PHYSICAL EXAMINATION: GENERAL: Now, the patient is lying comfortably in bed. He is not in acute distress. VITAL SIGNS: The blood pressure is 136/95, pulse is 92, respirations 18, temperature 98.1, and SPO2 is 94% on 7 liters nasal cannula. HEENT: Conjunctivae are pink. Sclerae are not icteric. NECK: Supple, no JVD. CHEST: There are bilateral crackles. No wheezing. HEART: Rhythm regular, normal sound, no murmur. ABDOMEN: Soft, bowel sounds present. No hepatosplenomegaly. RECTAL: Deferred. CONSULT REPORT [id number] CROW COTE EXTREMITIES: No cyanosis, no clubbing, no pedal edema. CENTRAL NERVOUS SYSTEM: The patient is awake and alert. There are no obvious cranial nerve abnormalities. The gait was not tested. IMAGING: Chest radiograph: There are increased interstitial markings, no infiltrates. LABORATORY DATA: CBC: WBC 17,000, hemoglobin 12.5, hematocrit 38.1, and the platelet count 203. Chemistry: Sodium 135, potassium 4.1, BUN is 35, and creatinine is 1.9. ABG: The pH is 7.42, pCO2 is 34.8, the pO2 was 56, bicarbonate is 23, this was done on 4 liters nasal cannula. IMPRESSION: 1. Gsrac-in-hwhwllt hypoxic respiratory failure. 2. Tracheobronchitis, rule out pneumonia. 3. Idiopathic pulmonary fibrosis. 4. Acute exacerbation of chronic obstructive pulmonary disease. 5. Leukocytosis. 6. Dyspnea. 7. History of chronic lymphocytic leukemia. RECOMMENDATIONS: 1. Continue methylprednisolone IV. 2. Change the nebulizer to Xopenex and ipratropium nebulizer. 3. Brovana and budesonide nebulizer. 4. Start on empiric Rocephin. 5. Follow up labs and chest radiograph. 6. Check ultrasound of the lower extremities. Dr. Quigley, thank you for involving me in the care of Mr. Cote. TRANSINT:[id number] Voice Confirmation ID: [id number] DOCUMENT ID: [id number] FREDA TRIPATHI MD CC: [id number] DICTATION DATE: 01/21/191710 BLOCKING MACHINE OPERATOR: 01/22/19217 ADM IN [facility] [address] [place] [address]
[2019-01-20 12:03] LABS: HEMATOCRIT 38.1 % (42.0-54.0); HEMOGLOBIN 12.5 g/dL (13.5-17.5); MCH 31.7 pg (26.0-34.0); MCHC 32.8 g/dL (31.0-37.0); MCV 96.7 fL (80.0-100.0); MEAN PLATELET VOLUME 9.5 fL (7.4-10.4); PLATELET COUNT 203 10x3/uL (130-400); RBC 3.94 10x6/uL (4.20-6.10); RDW 17.6 % (11.5-14.5)
[2019-01-20 12:15] LABS: APTT 25.3 SECONDS (22.8-39.4); INR 0.95 (0.85-1.17); PROTIME 12.2 SECONDS (11.6-15.0)
[2019-01-20 12:20] LABS: ALBUMIN 3.2 g/dL (3.4-5.0); ALKALINE PHOSPHATASE 63 U/L (46-116); ALT (SGPT) 23 U/L (10-68); BILIRUBIN - TOTAL 0.69 mg/dL (0.2-1.3); CALC OSMOLALITY 282 mosm/kg (275-300); CALCIUM 8.4 mg/dL (8.5-10.1); CARBON DIOXIDE 25.6 mmol/L (21.0-32.0); CHLORIDE - SERUM 105 mmol/L (98-107); CREATININE - SERUM 1.3 mg/dL (0.6-1.3); GLUCOSE 120 mg/dL (74-106); POTASSIUM - SERUM 4.2 mmol/L (3.5-5.1); PROTEIN - SERUM 6.5 g/dL (6.4-8.2); SODIUM 139 mmol/L (136-145); UREA NITROGEN 23 mg/dL (7-18); eGFR NON AFRICAN AMERICAN 56 mL/min (90-120)
[2019-01-20 12:32] LABS: CKMB 0.6 U/L (0.0-3.6); CREATINE KINASE 22 UL (21-232); PRO BNP 1154 pg/mL (0-450); TROPONIN-I < 0.017 ng/mL (0.000-0.060)
[2019-01-20 12:56] LABS: LYMPHOCYTES 53 % (15-50); MONOCYTES 6 % (2-11); NEUTROPHILS 41 % (40-80); PLATELET ESTIMATE NORMAL; ROULEAUX OCC
--- NOTE | 2019-01-20 16:46 | NUR ---
REPORT CALLED TO ANA GERMAIN BY SBAR FORMAT
--- NOTE | 2019-01-20 16:50 | NUR ---
TRANSPORTED TO ROOM #1212 , CONDITION STABLE
--- NOTE | 2019-01-20 17:15 | NUR ---
NEW PATIENT ADMIT FROM ER VIA STRETCHER AND HOSPITAL PERSONNEL. PATIENT IS ACCOMPANIED BY 2 DAUGHTERS. PATIENT IS AWAKE, ALERT AND ORIENTED X 4. PATIENT IS PLEASANT AND ORIENTED TO ROOM AND CALL LIGHT. LT WRIST WITH 20 G IV SL. NO REDNESS OR EDEMA NOTED AT SITE. O2 PER NC @ 7L/MIN. DAUGHTER AND PATIENT INFORMED THIS NURSE THAT HE USES 02 PER NC AT HOME 2 7L/MIN. THEY ALSO STATE THAT HE IS A LONG TIME PATIENT OF DR GOMES. DR GOMES DID COME EARLIER TO UNIT FOR CONSULT BUT PATIENT WAS STILL IN THE ER. PATIENT IS STABLE. VSS. NO ACUTE DISTRESS NOTED. WILL CONTINUE WITH PLAN OF CARE.
[2019-01-20 18:56] LABS: APPEARANCE CLEAR (CLEAR); BILIRUBIN NEGATIVE (NEGATIVE); COLOR YELLOW (YELLOW); GLUCOSE NEGATIVE (NEGATIVE); KETONE NEGATIVE (NEGATIVE); NITRITE NEGATIVE (NEGATIVE); PROTEIN NEGATIVE (NEGATIVE); SPECIFIC GRAVITY 1.015 (1.005-1.020); UROBILINOGEN NORMAL (NORMAL)
--- NOTE | 2019-01-20 19:30 | NUR ---
RECEIVED REPORT, WILL ASSUME CARE OF PT, DENIES ANY NEEDS AT THIS TIME, FAMILY AT BEDSIDE, BED IS LOW, SRX2, CALL LIGHT IN REACH, WILLCONTINUE PLAN OF CARE
--- NOTE | 2019-01-20 20:45 | NUR ---
[id number] HUMULIN R-6 UNITS
--- NOTE | 2019-01-21 03:04 | NUR ---
I have reviewed this patient and I concur with the Shift Assessment completed by the Licensed Practical Nurse today this shift.
[2019-01-21 04:21] VITALS: BP 128/70
[2019-01-21 06:53] LABS: HEMATOCRIT 37.8 % (42.0-54.0); HEMOGLOBIN 12.3 g/dL (13.5-17.5); MCH 31.5 pg (26.0-34.0); MCHC 32.5 g/dL (31.0-37.0); MCV 96.9 fL (80.0-100.0); MEAN PLATELET VOLUME 9.9 fL (7.4-10.4); PLATELET COUNT 229 10x3/uL (130-400); RDW 17.4 % (11.5-14.5); WBC 15.5 10x3/uL (4.8-10.8)
[2019-01-21 06:56] LABS: CALCIUM 8.8 mg/dL (8.5-10.1); CARBON DIOXIDE 22.1 mmol/L (21.0-32.0); CREATININE - SERUM 1.9 mg/dL (0.6-1.3); POTASSIUM - SERUM 4.1 mmol/L (3.5-5.1)
[2019-01-21 07:00] VITALS: BP 130/60
[2019-01-21 08:18] LABS: LYMPHOCYTES 55 % (15-50); MONOCYTES 1 % (2-11); NEUTROPHILS 42 % (40-80); PLATELET ESTIMATE NORMAL; PLATELET MORPHOLOGY GIANT PLTS PRESENT
[2019-01-21 11:00] VITALS: BP 132/76
[2019-01-21] MEDS ORDERED: ALBUTEROL2.5 MG/3 M (11:03)
[2019-01-21 11:08] VITALS: BMI 30.4
[2019-01-21 16:00] VITALS: BP 136/95
--- NOTE | 2019-01-21 17:00 | NUR ---
CALLED TO PATIENTS ROOM BY SON. PATIENT COMPLAINS OF MID CHEST PAIN AT A 6. DENIES ANY NAUSEA, JAW OR BACK PAIN OR PAIN RADIATING TO EITHER ARM. BP 124/82 HR 99 02 SAT 90. REPOSITIONED PATIENT UP IN BED AND ELEVATED HOB. PATIENT STATES THAT HE CAN BREATHE BETTER AND CHEST PAIN IS IMPROVING. LEFT ROOM TO CALL ROBERT NUÑEZ APN WITH DR QUIGLEY. GAVE ALL INFORMATION TO ROBERT. NEW ORDERS RECEIVED TO INITIATE CHEST PAIN PROTOCOL AND CONSULT CARDIOLOGY. SPOKE WITH DR PRECIADO. BACK INTO PATIENT ROOM. VSS. PATIENT DENIES ANY CHEST PAIN NOW. WILL CONTINUE TO MONITOR. SR UP X 2 BED IN LOW POSITION AND CALL LIGHT IN REACH.
--- NOTE | 2019-01-21 18:00 | NUR ---
PATIENT IS UNCHANGED AND VSS. PATIENT DENIES CP. SON AT BS. WILL CONTINUE TO MONITOR. SR UP X 2 BED IN LOW POSITION AND CALL LIGHT IN REACH.
--- NOTE | 2019-01-21 19:15 | NUR ---
PT ALERT AND ORIENTED. HOB ELEVATED. WEARING 7L THROUGH HF CANNULA. DENIES PAIN AT THIS TIME. SON AT BEDSIDE. ASKED THAT I LOOK AT TOP OF PT HEAD. SON SAYS "HE HAD SKIN CANCER REMOVED." APPEARS TO BE A BLACK SCAB LIKE SPOT THAT IS LESS THAN THE SIZE OF A DIME ON BACK OF HEAD. PT DOES NOT REPORT ANY PAIN FROM THE AREA. SON STATES PT IS SUPPOSED TO SEE A DOCOTOR ABOUT SPOT ON WEDNESDAY. PT STATES THAT HE IS VERY TIRED. REQUESTS NIGHT TIME MEDICATION WHEN AVAILABLE. HAS LEFT AC THAT IS SALINE LOCKED. DENIES FURTHER NEEDS AT THIS TIME. CALL LIGHT IN REACH.
[2019-01-21 19:31] LABS: CKMB 1.8 U/L (0.0-3.6); CREATINE KINASE 62 UL (21-232); TROPONIN-I < 0.017 ng/mL (0.000-0.060)
--- NOTE | 2019-01-21 19:39 | NUR ---
RECEIVING REPORT ON PATIENT. DR. HUANG CALLED WITH REPORT FROM [facility] STATING PATIENT HAS BILATERAL DVT'S. PAGED DR. TRIPATHI. DR. TRIPATHI RETURNED PHONE CALL AND RECEIVED NEW ORDERS FOR MEDICATIONS. SEE MED REC. CPOC.
[2019-01-21 20:00] VITALS: BP 106/49
--- NOTE | 2019-01-21 20:09 | NUR ---
PATIENT AND GUEST REQUESTED THAT PATIENT SKIP MIDNIGHT VITALS IF THE PATIENT IS SLEEPING
--- NOTE | 2019-01-22 01:28 | NUR ---
I have reviewed this patient and I concur with the Shift Assessment completed by the Licensed Practical Nurse today this shift.
[2019-01-22 01:40] LABS: CREATINE KINASE 79 UL (21-232); TROPONIN-I 0.017 ng/mL (0.000-0.060)
[2019-01-22 04:00] VITALS: BP 113/58
[2019-01-22 06:59] LABS: CKMB 2.3 U/L (0.0-3.6); CREATINE KINASE 90 UL (21-232); TROPONIN-I 0.016 ng/mL (0.000-0.060)
[2019-01-22 13:21] LABS: HEMATOCRIT 36.2 % (42.0-54.0); HEMOGLOBIN 12.2 g/dL (13.5-17.5); RBC 3.84 10x6/uL (4.20-6.10); WBC 27.3 10x3/uL (4.8-10.8)
[2019-01-22 13:22] LABS: BASOPHILS 0.1 % (0-2); EOSINOPHILS 0 % (0-7); IMMATURE GRANULOCYTES 0.4 % (0-5); MCH 31.8 pg (26.0-34.0); MCHC 33.7 g/dL (31.0-37.0); MCV 94.3 fL (80.0-100.0); MONOCYTES 2.6 % (2-11); NEUTROPHILS 56.9 % (40-80); PLATELET COUNT 212 10x3/uL (130-400); RDW 17.5 % (11.5-14.5)
[2019-01-22 13:35] LABS: ALBUMIN 3.2 g/dL (3.4-5.0); ANION GAP 18.5 mmol/L (8-16); BILIRUBIN - TOTAL 0.38 mg/dL (0.2-1.3); CALCIUM 9.1 mg/dL (8.5-10.1); CARBON DIOXIDE 21.6 mmol/L (21.0-32.0); CREATININE - SERUM 1.7 mg/dL (0.6-1.3); POTASSIUM - SERUM 4.1 mmol/L (3.5-5.1); PROTEIN - SERUM 6.9 g/dL (6.4-8.2)
--- NOTE | 2019-01-22 15:36 | NUR ---
DR BACA IN ROOM. NO NEW ORDERS RECEIVED.
[2019-01-22 15:48] VITALS: BP 126/84
[2019-01-22 19:45] VITALS: BP 137/79
--- NOTE | 2019-01-22 19:51 | NUR ---
PATIENT RECEIVED SITTING UP IN BED. ASSESSMENT & VITAL SIGNS DONE. NO C/O PAIN OR DISTRESS. BED LOW. CALL LIGHT IWTHIN REACH. WILL CONTINUE TO MONITOR.
--- NOTE | 2019-01-22 20:44 | NUR ---
ADMINISTERED HALF OF A 50MG LOPRESSOR TABLET
[2019-01-22 23:58] VITALS: BP 144/83
--- NOTE | 2019-01-23 00:37 | NUR ---
PATIENT FACE HAD DRIED BLOOD ON IT FROM NOSE BLEED. NO FURTHER BLOOD FLOW AFTER NOSE & FACE WAS CLEANED. PATIENT INFORMED TO BLOW & CLEAN NOSE GENTLY. PATIENT MADE COMFORTABLE. CALL LIGHT WITHIN REACH. WILL CONTINUE TO MONITOR.
--- NOTE | 2019-01-23 01:53 | NUR ---
FANNY NURSE FROM ICU PLACED IV SITE IN LEFT AC. PATIENT TOLERATED IT WELL. CALL LIGHT WITHIN REACH. WILL CONTIUE TO MONITOR.
[2019-01-23 04:22] VITALS: BP 154/86
[2019-01-23 07:26] LABS: HEMOGLOBIN 11.7 g/dL (13.5-17.5); MCH 31.1 pg (26.0-34.0); MCHC 32.5 g/dL (31.0-37.0); MCV 95.7 fL (80.0-100.0); MEAN PLATELET VOLUME 9.8 fL (7.4-10.4); PLATELET COUNT 235 10x3/uL (130-400); RBC 3.76 10x6/uL (4.20-6.10); RDW 17.5 % (11.5-14.5); WBC 24.7 10x3/uL (4.8-10.8)
[2019-01-23 07:27] LABS: CARBON DIOXIDE 27.3 mmol/L (21.0-32.0); CREATININE - SERUM 1.4 mg/dL (0.6-1.3); POTASSIUM - SERUM 4.3 mmol/L (3.5-5.1)
[2019-01-23 08:01] VITALS: BP 161/95
[2019-01-23 08:08] LABS: % SATURATION 22 % (15-55); IRON 78 ug/dl (35-150); TOTAL IRON BIND CAPACITY 342 ug/dl (260-445); UNSAT IRON BIND CAPACITY 264 ug/dl (150-375)
--- NOTE | 2019-01-23 08:23 | NUR ---
PT RESTING IN BED, FAMILY AT BEDSIDE, SHIFT ASSESSMENT PERFORMED. DENIES ANY NEEDS AT THIS TIME, WILL CONT TO FOLLOW POC
[2019-01-23 09:56] LABS: ANISOCYTOSIS OCC; HYPOCHROMASIA OCC; LYMPHOCYTES 39 % (15-50); MONOCYTES 3 % (2-11); NEUTROPHILS 58 % (40-80); PLATELET ESTIMATE NORMAL; ROULEAUX OCC
--- NOTE | 2019-01-23 12:18 | NUR ---
PT SON CAME TO NURSES STATION AND ALERTED NURSE THAT PT COUGHED UP A LOT OF BLOOD. UPON EXAMINATION, PT HAD COUGHED UP A LARGE BLOOD CLOT INTO A TISSUE. BLOOD CLOT WAS ABOUT 3IN LONG. PT VSS AND WNL. PAGED AND NO NEW ORDERS WERE RECIEVED.
[2019-01-23 16:39] VITALS: Ht 177.8 cm; Wt 97.0 kg
[2019-01-23 18:03] VITALS: BP 118/62
--- NOTE | 2019-01-23 19:15 | NUR ---
PT ALERT AND ORIENTED WITH HEAD OF BED ELEVATED. FREQUENT COUGHING. PT HAS PLASTIC TUB HAS SEVERAL TISSUES IN THE PLASTIC TUB THAT HAVE BLOOD ON THEM , EACH ABOUT DIME SIZED AMOUNT. RECEIVED IN REPORT THAT PATIENT HAS DONE THIS THROUGH OUT THE DAY AND THAT PT COUGHED UP WHAT APPEARED TO BE A BLOODY CLOT. PT VERBALIZED SAME EVENTS THROUGH OUT THE DAY. SPOKE WITH PATIENT ABOUT PROCEDURE TOMORROW. PATIENT AWARE AND VERBALIZES UNDERSTANDING OF MEDICATIONS THAT WILL BE ADMINISTERED. PT WEARING 7 L O2 THROUGH HIGH FLOW CANNULA. DENIES PAIN. HAS CALL LIGHT IN REACH. USES APPROPRIATELY. CPOC.
[2019-01-23 20:00] VITALS: BP 170/99
--- NOTE | 2019-01-23 21:45 | NUR ---
ANSWERED PATIENT CALL LIGHT. PT STATES THAT HE HAS BEEN COUGHING AND "FINALLY GOT UP THIS THING THAT HAS FELT STUCK HERE (POINTS TO CHEST) ALL DAY". 3 INCH IN LENGTH AND 1/2 INCH DIAMETER BLOODY CLOT THAT WAS DENSE ON ONE SIDE. PT STATED SEVERAL TIMES HE FELT MUCH BETTER. PT ASKED TO GO TO BED. DENIES FURTHER NEEDS AT THIS TIME. CALL LIGHT REMAINS IN REACH. BED LOCKED AND LOWERED. DOOR OPEN AND CLOSE TO NURSES STATION FOR MONITORING.
--- NOTE | 2019-01-23 22:10 | NUR ---
PT ASKED NOT TO BE WOKEN FOR MIDNIGHT VITALS IF ASLEEP WHEN ROUNDS ARE DUE.
--- NOTE | 2019-01-24 05:30 | NUR ---
I have reviewed this patient and I concur with the Shift Assessment completed by the Licensed Practical Nurse today this shift.
[2019-01-24 06:36] VITALS: BP 167/80
[2019-01-24 06:37] LABS: BASOPHILS 0.1 % (0-2); EOSINOPHILS 0 % (0-7); HEMATOCRIT 35.2 % (42.0-54.0); HEMOGLOBIN 11.3 g/dL (13.5-17.5); IMMATURE GRANULOCYTES 0.6 % (0-5); MCH 31.8 pg (26.0-34.0); MCHC 32.1 g/dL (31.0-37.0); MCV 99.2 fL (80.0-100.0); MEAN PLATELET VOLUME 10.3 fL (7.4-10.4); MONOCYTES 3.1 % (2-11); NEUTROPHILS 39.2 % (40-80); PLATELET COUNT 202 10x3/uL (130-400); RBC 3.55 10x6/uL (4.20-6.10); RDW 17.7 % (11.5-14.5); WBC 21.5 10x3/uL (4.8-10.8)
[2019-01-24 07:06] LABS: CALCIUM 8.7 mg/dL (8.5-10.1); CARBON DIOXIDE 21.1 mmol/L (21.0-32.0); CREATININE - SERUM 1.1 mg/dL (0.6-1.3)
--- NOTE | 2019-01-24 07:40 | NUR ---
PT RESTING IN BED WITH SON AT BEDSIDE, SHIFT ASSESSMENT PERFORMED AND NOTICED A LARGE BRUISE NEXT TO PT PIV. STOPPED IVF AND CALLED VASCULAR ACCESS NURSE AND ANGELA MELENDEZ. REMOVED PIV WITH CATHETER TIP INTACT AND APPLIED PRESSURE BANDAGE.
[2019-01-24 08:05] LABS: ANION GAP 16.6 mmol/L (8-16); POTASSIUM - SERUM 4.7 mmol/L (3.5-5.1)
--- NOTE | 2019-01-24 08:56 | NUR ---
VASCULAR ACCESS NURSE PLACED MIDLINE TO PT RIGHT UPPER ARM. PT TOLERATED WELL. WILL CONT TO FOLLOW POC
[2019-01-24 09:49] VITALS: BP 152/87
[2019-01-24 10:10] LABS: ACLA - IGG AB <9 GPL U/mL (0-14); ACLA - IGM AB <9 MPL U/mL (0-12); HAPTOGLOBIN 189 mg/dL (34-200)
--- NOTE | 2019-01-24 12:12 | NUR ---
Nutrition Follow-up: Pt reports good appetite/PO intake. 100% of meal eaten this AM. Diet: Diabetic PO intake: 86% Last BM: 01/23 Wt stable Labs noted: Glu 164 Meds noted: Humulin, Solumedrol, Folate, Miralax, Protonix, NS 0.45% @ 30 mL/hr Rec continue current diet as tolerated. [place] food preferences within diet order. RD following.
[2019-01-24 12:18] VITALS: BP 158/70
--- NOTE | 2019-01-24 14:32 | NUR ---
PT DAUGHTER STATES THAT THE PT USES A TRILOGY Q[facility] AT HOME. PAGED AND VERBAL APPROVAL GIVEN FROM FOR PT TO USE HIS HOME TRILOGY WHILE IN THE HOSPITAL.
--- NOTE | 2019-01-24 18:10 | NUR ---
PT SITTING IN CHAIR EATING SUPPER, DENIES ANY NEEDS AT THIS TIME, WILL CONT TO FOLLOW POC
--- NOTE | 2019-01-24 19:06 | NUR ---
PT SITTING IN CHAIR AT BEDSIDE. ASSISTED PT TO BED WITH HELP OF DAUGHTER AT BEDSIDE. PT DENIES NEEDS AT THIS TIME.
[2019-01-24 21:02] VITALS: BP 167/97
[2019-01-25] VITALS (13 sets, daily range): BP systolic 116–170; BP diastolic 68–103
[2019-01-25 03:07] LABS: PROTEIN S - FREE 141 % (57-157); PROTEIN S - FREE 143 % (57-157); PROTEIN S - FUNCTIONAL 160 % (63-140); PROTEIN S - TOTAL 94 % (60-150); PROTEIN S - TOTAL 98 % (60-150)
[2019-01-25 06:33] LABS: ANION GAP 10.7 mmol/L (8-16); CALCIUM 8.7 mg/dL (8.5-10.1); CREATININE - SERUM 1.3 mg/dL (0.6-1.3); POTASSIUM - SERUM 4.4 mmol/L (3.5-5.1)
[2019-01-25 06:34] LABS: CARBON DIOXIDE 26.7 mmol/L (21.0-32.0)
[2019-01-25 06:54] LABS: HEMATOCRIT 31.2 % (42.0-54.0); HEMOGLOBIN 10.3 g/dL (13.5-17.5); MCH 31.6 pg (26.0-34.0); MCV 95.7 fL (80.0-100.0); PLATELET COUNT 227 10x3/uL (130-400); RBC 3.26 10x6/uL (4.20-6.10); RDW 17.3 % (11.5-14.5); WBC 22.7 10x3/uL (4.8-10.8)
[2019-01-25 09:24] LABS: LYMPHOCYTES 49 % (15-50); MONOCYTES 1 % (2-11); NEUTROPHILS 49 % (40-80); PLATELET ESTIMATE NORMAL
[2019-01-25 10:52] LABS: INR 1.22 (0.85-1.17); PROTIME 14.9 SECONDS (11.6-15.0)
[2019-01-25 10:53] LABS: APTT 39.9 SECONDS (22.8-39.4)
--- NOTE | 2019-01-25 11:13 | NUR ---
Rehab Prescreening Consult recieved and the chart has been reviewed. He is on 7 liters of 02, but according to notes he is on that at home. He is a good ARU candidate, however PT has signed off stating he is at his baseline which is 5 feet. Rehab will ask PT to relook at him for the Rehab eval. Aileen Gabriel RN Clinical Liaison, Rehab
--- NOTE | 2019-01-25 12:15 | NUR ---
Visitred with the patient and family member this morning about the ARU referral. Patient is unstable and is being transferred to the ICU. He says he lives alone and is interested in regaining his strength so he can return, so wants rehab when he is stable. Rehab visit cut short due to circumstances, I assured the patient and family we would continue to follow his progress as he is a good rehab candidate. Discussed with the CM Bee Gabriel RN Clinical Liaison, Rehab
--- NOTE | 2019-01-25 12:15 | NUR ---
PT ARRIVED IN THE UNIT AND HOOKED TO ICU MONITORS. PT A&OX4. SIMPLE MASK AT 7L. PT SLIGHTLY OOZING BLOOD FROM HIS NOSE. DRESSING NOTED TO RIGHT UPPER ARM FROM PREVIOUS MIDLINE. BRUSING NOTED TO BILATERAL UE. LARGE HEMATOMA NOTED TO RUE. ABD BRUSING NOTED WELL. PPM NOTED TO LEFT UPPER CHEST. PT DENIES PAIN AT THIS TIME. CALL LIGHT IN REACH. WILL CONT POC.
[2019-01-25 13:00] LABS: HEMATOCRIT 31.1 % (42.0-54.0); HEMOGLOBIN 10.2 g/dL (13.5-17.5)
[2019-01-25] MEDS ORDERED: HYDROCODON-ACE1 EAC7 PO (13:38)
[2019-01-25] MEDS ORDERED: LEVOFLOXACIN500 MG PO (13:39)
--- NOTE | 2019-01-25 14:11 | NUR ---
DR CURRY IN THE UNIT AND SPOKE WITH HIM ABOUT HIS CONSULT FOR CVL PLACEMENT.
--- NOTE | 2019-01-25 14:35 | NUR ---
DR CURRY IN THE UNIT. HE STATED TO GO AHEAD A TRY TO START AN IV AND HOLD OFF ON THE CVL TODAY. HE WILL SPEAK WITH RADIOLOGY ABOUT PLACING A CVL IN TOMORROW.
--- NOTE | 2019-01-25 15:47 | NUR ---
VASULAR ACCESS NURSE AT THE PTS BEDSIDE. SHE PLACED A 20 GAUGE IN THE LEFT AC WITH NO S/X OF INFILTRATION/HEMATOMA. WILL CONT PC.
[2019-01-25 17:16] LABS: HEMATOCRIT 30.2 % (42.0-54.0); HEMOGLOBIN 10.1 g/dL (13.5-17.5)
--- NOTE | 2019-01-25 18:43 | NUR ---
DR BLACK AT THE PTS BEDSIDE. NO N.O AT THIS TIME.
--- NOTE | 2019-01-25 20:00 | NUR ---
SUPINE IN BED, A&O X 4, DENIES PAIN. NOSE IS BLEEDING AND LEFT EYE IS WATERING WITH BLOOD. REPORTS OCCASIONAL BLEEDING FROM RECTUM. FAMILY AT BEDSIDE. QUESTIONS ANSWERED. RT NOTIFIED FOR HUMIDIFIER PER FAMILY REQUEST. EDEMA IN BILAT UPPER EXTREMETIES WELL HEAVY BRUISING, PRIMARILY IN LUE. ALL EXTREMETIES WARM, PALPABLE PULSES. PT DENIES NEEDS AT THIS TIME, WILL CONTINUE TO MONITOR.
[2019-01-25 23:19] LABS: HEMATOCRIT 29.4 % (42.0-54.0); HEMOGLOBIN 9.8 g/dL (13.5-17.5)
[2019-01-26] VITALS (14 sets, daily range): BP systolic 113–159; BP diastolic 64–92
--- NOTE | 2019-01-26 05:04 | NUR ---
BP 159/92. PATIENT CARE SECRETARY NOTIFIED, NORVASC GIVEN EARLY PER VERBAL ORDER, WILL MONITOR CLOSELY.
[2019-01-26 05:21] LABS: ANION GAP 13.6 mmol/L (8-16); CALCIUM 8.4 mg/dL (8.5-10.1); CARBON DIOXIDE 26.5 mmol/L (21.0-32.0); CREATININE - SERUM 1.4 mg/dL (0.6-1.3)
[2019-01-26 05:50] LABS: POTASSIUM - SERUM 5.1 mmol/L (3.5-5.1)
[2019-01-26 06:38] LABS: BASOPHILS 0.1 % (0-2); EOSINOPHILS 0 % (0-7); HEMOGLOBIN 9.7 g/dL (13.5-17.5); IMMATURE GRANULOCYTES 1.1 % (0-5); LYMPHOCYTES 57.4 % (15-50); MCHC 32.3 g/dL (31.0-37.0); MCV 95.8 fL (80.0-100.0); MEAN PLATELET VOLUME 9.9 fL (7.4-10.4); MONOCYTES 2.3 % (2-11); NEUTROPHILS 39.1 % (40-80); PLATELET COUNT 225 10x3/uL (130-400); RBC 3.13 10x6/uL (4.20-6.10); RDW 17.4 % (11.5-14.5); WBC 24.1 10x3/uL (4.8-10.8)
--- NOTE | 2019-01-26 07:00 | NUR ---
SHIFT ASSESSNENT COMPLETED. PT CARE ASSUMED. MONITORS ON AND WORKING, VITALS STABLE, PT AWAKE AND ALERT, CALL LIGHT WITHIN REACH, WILL CONTINUE TO OBSERVE. SEE FLOW SHEET FOR FURTHER DETAILS. WILL CONTINUE TO OBSERVE.
--- NOTE | 2019-01-26 09:00 | NUR ---
ORAL CARE DONE AT THIS TIME, DRIED BLOOD CLEANED FROM PT NOSE. PT AWAKE AND ALERT, FAMILY AT BEDSIDE MONITORS ON AND WORKING, VITALS STABLE, CALL LIGHT WITHIN REACH, WILL CONTINUE TO OBSERVE.
--- NOTE | 2019-01-26 11:00 | NUR ---
REC'D ORDER TO TRANSFER PT TO FLOOR WHEN ROOM BECOMES AVAIABLE. PT ASSISTED TO CHAIR AT BEDSIDE. FAMILY AT BEDSIDE, UPDATE PROVIDED, FAMILY SPOKE WITH MD. CALL LIGHT WITHIN REACH, WILL CONTINUE TO OBSERVE.
[2019-01-26 11:09] LABS: ALPHA FETOPROTEIN -(TUMOR MRK) 0.8 ng/mL (0.0-8.3); CEA 4.1 ng/mL (0.0-4.7)
--- NOTE | 2019-01-26 15:34 | NUR ---
DAUGHTER NOTIFIED PT BEING MOVED. ROOM NUMBER GIVEN.
--- NOTE | 2019-01-26 16:06 | NUR ---
PT RECIEVED VIA WHEELCHAIR FROM ICU TO ROOM 1204. PT HAS DRIED BLOOD AROUND MOUTH AND NOSE. GENERALIZED EDEMA/BRUISING TO UPPER EXTREMITIES. RLQ AND RIGHT SIDE HAS GENERALIZED PURPLE BRUISING WELL. IV NOTED TO RIGHT WRIST INFUSING NS @ 15. DRESSING BLOODY BUT PATENT, NURSE FROM REPORT STATES IT HAS BEEN THAT WAY DUE TO ANTICOAGULANT MEDS. VSS AT THIS TIME. 7L HIGH FLOW NC. DENIES NEEDS OR PAIN AT THIS TIME. FAMILY AT BEDSIDE. RR EVEN AND UNLABORED. WILL CONTINUE TO MONITOR.
--- NOTE | 2019-01-26 17:34 | NUR ---
FAMILY CONCERNED ABOUT NASAL PASSAGE BEING OBSTRUCTED BY DRIED BLOOD IN NAIRS. INSTRUCTED FAMILY NOT TO REMOVE.
[2019-01-26 18:40] LABS: HEMATOCRIT 28.5 % (42.0-54.0); HEMOGLOBIN 9.5 g/dL (13.5-17.5)
--- NOTE | 2019-01-26 18:54 | MORECARE ---
CASE MANAGEMENT DISCHARGE SUMMARY PATIENT: CROW WALKER UNIT: [id number] ADM DATE: 01/20/19 AGE: 83 : 34 SEX: M ROOM/BED: D.1204 AUTHOR: CONCHIS VASQUEZ PHYSICIAN: REFERRING PHYSICIAN: AILYN QUIGLEY MD DATE OF SERVICE: 01/26/19 Discharge Plan Patient Name: CROW WALKER [facility] [facility] 1935 Planned Disposition: Anticipated Discharge Date: Discharge Date: Expected LOS: Initial Reviewer: [email or web address] Initial Review Date: 01/20/2019 Generated: 01/26/19 7:54 pm External Providers External Provider: [facility], [facility]. ([facility] Next Contact Date: Service Request Date: Service Type: Resolution: Reviewer: Comments: Patient Name: CROW WALKER Page [phone] at 1854 All edits/amendments must be made on the electronic document DICTATION DATE: 01/26/191853 LOCOMOTIVE ENGINEER: IRA 01/26/191853 RPT#: [id number] ID DATE: STATUS: ADM IN [facility] [address] [place] [address] END OF REPORT
--- NOTE | 2019-01-26 19:01 | MORECARE ---
CASE MANAGEMENT DISCHARGE SUMMARY PATIENT: CROW WALKER UNIT: [id number] ADM DATE: 01/20/19 AGE: 83 : 34 SEX: M ROOM/BED: D.1204 AUTHOR: PEDRO,DOC PHYSICIAN: REFERRING PHYSICIAN: AILYN QUIGLEY MD DATE OF SERVICE: 01/26/19 Discharge Plan Patient Name: CROW WALKER Facility: [facility]:[place] : 1935 Planned Disposition: Anticipated Discharge Date: Discharge Date: Expected LOS: Initial Reviewer: [email or web address] Initial Review Date: 01/20/2019 Generated: 01/26/19 8:01 pm Comments DCP- Discharge Planning Updated by [email or web address]: Ora Lin on 01/26/19 6:[address] Patient Name: CROW WALKER Admission Status: ER Accout number: [id number] Admission Date: 01-20-2019 : 1935 Admission Diagnosis: Attending: AILYN BAILEY Current LOS: 6 Anticipated DC Date: Planned Disposition: Primary Insurance: MEDICARE A & B Discharge Planning Comments: CM met with patient at bedside after explaining CM role and obtaining verbal consent. Patient lives at home alone and plans to return there upon discharge. Patient states he has family that lives all around him. Patient states he has Home Health with [facility] plans to resume care with them upon discharge. CM discussed availability / needs of home health and medical equipment. Patient denies any discharge needs at this time. Patient states he will have family drive him home upon discharge. CM will continue to follow and assist as needed with discharge planning / needs. General Internal Medicine Doctor: Ora Lin DCPIA - Discharge Planning Initial Assessment Updated by [email or web address]: Ora Lin on 01/26/19 6:57 pm * Is the patient Alert and Oriented? Yes * How many steps to enter\exit or inside your home? ramp * PCP BRIANA * Pharmacy [facility] * Preadmission Environment Home Alone * ADLs Independent * Other Equipment SCOTTER, HOME 02 & PORTABLE, NEBULIZER, WALKER * List name and contact numbers for known caregivers / representatives who currently or will assist patient after discharge: JENNY BENSON [facility]- [phone] * Verbal permission to speak to the caregivers and representatives has been obtained from the patient. Yes * Community resources currently utilized Home Health * Please name any agencies selected above. [facility] * Additional services required to return to the preadmission environment? No * Can the patient safely return to the preadmission environment? Yes * Has this patient been hospitalized within the prior 30 days at any hospital? No Last DP export: 01/26/19 5:54 pm Patient Name: CROW WALKER Page [id number] at 1901 All edits/amendments must be made on the electronic document DICTATION DATE: 01/26/191900 FIRST SAMPLER: IRA 01/26/191900 RPT#: [id number] DC DATE: STATUS: ADM IN [facility] [address] [place] [address] END OF REPORT
--- NOTE | 2019-01-26 19:08 | MORECARE ---
CASE MANAGEMENT DISCHARGE SUMMARY PATIENT: CROW WALKER UNIT: [id number] ADM DATE: 01/20/19 AGE: 83 : 34 SEX: M ROOM/BED: D.1204 AUTHOR: PEDRO,DOC PHYSICIAN: REFERRING PHYSICIAN: AILYN QUIGLEY MD DATE OF SERVICE: 01/26/19 Discharge Plan Patient Name: CROW WALKER Facility: [facility]:[place] : 1935 Planned Disposition: Anticipated Discharge Date: Discharge Date: Expected LOS: Initial Reviewer: [email or web address] Initial Review Date: 01/26/2019 Generated: 01/26/19 8:08 pm Comments DCP- Discharge Planning Updated by [email or web address]: Ora Lin on 01/26/19 6:[address] Patient Name: CROW WALKER Admission Status: ER Accout number: [id number] Admission Date: 01-20-2019 : 1935 Admission Diagnosis: Attending: AILYN BAILEY Current LOS: 6 Anticipated DC Date: Planned Disposition: Primary Insurance: MEDICARE A & B Discharge Planning Comments: CM met with patient at bedside after explaining CM role and obtaining verbal consent. Patient lives at home alone and plans to return there upon discharge. Patient states he has family that lives all around him. Patient states he has Home Health with [facility] plans to resume care with them upon discharge. CM discussed availability / needs of home health and medical equipment. Patient denies any discharge needs at this time. Patient states he will have family drive him home upon discharge. CM will continue to follow and assist as needed with discharge planning / needs. Banquet Waiter/Waitress: Ora Lin Appended by Ora Lin on 01/26/2019 19:04 CDT: CM was called back to patients room daughter and grand-daughter in room requesting for patient to be evaluated for Hospice. CM spoke with patient to see if he agrees for hospice to evaluate. YULIYA signed for [facility]. CM called and spoke with Aileen @ [facility] and faxed records. CM explained that patient and family was wanting more information. CM will continue to follow and assist as needed with discharge planning / needs. DCPIA - Discharge Planning Initial Assessment Updated by [email or web address]: Ora Lin on 01/26/19 6:57 pm * Is the patient Alert and Oriented? Yes * How many steps to enter\exit or inside your home? ramp * PCP BRIANA * Pharmacy [facility] * Preadmission Environment Home Alone * ADLs Independent * Other Equipment SCOTTER, HOME 02 & PORTABLE, NEBULIZER, WALKER * List name and contact numbers for known caregivers / representatives who currently or will assist patient after discharge: JENNY BENSON - [facility]- [phone] * Verbal permission to speak to the caregivers and representatives has been obtained from the patient. Yes * Community resources currently utilized Home Health * Please name any agencies selected above. [facility] * Additional services required to return to the preadmission environment? No * Can the patient safely return to the preadmission environment? Yes * Has this patient been hospitalized within the prior 30 days at any hospital? No Last DP export: 01/26/19 6:01 pm Patient Name: CROW WALKER Page [id number] at 1908 All edits/amendments must be made on the electronic document DICTATION DATE: 01/26/191906 CERTIFIED ORTHOTIST: IRA 01/26/191906 RPT#: [id number] DC DATE: STATUS: ADM IN [facility] [address] [place] [address] END OF REPORT
--- NOTE | 2019-01-26 19:14 | MORECARE ---
CASE MANAGEMENT DISCHARGE SUMMARY PATIENT: CROW WALKER UNIT: [id number] ADM DATE: 01/20/19 AGE: 83 : 34 SEX: M ROOM/BED: D.1204 AUTHOR: PEDRO,DOC PHYSICIAN: REFERRING PHYSICIAN: AILYN QUIGLEY MD DATE OF SERVICE: 01/26/19 Discharge Plan Patient Name: CROW WALKER Facility: [facility]:[place] : 1935 Planned Disposition: Anticipated Discharge Date: Discharge Date: Expected LOS: Initial Reviewer: [email or web address] Initial Review Date: 01/26/2019 Generated: 01/26/19 8:14 pm Comments DCP- Discharge Planning Updated by [email or web address]: Ora Lin on 01/26/19 6:[address] Patient Name: CROW WALKER Admission Status: ER Accout number: [id number] Admission Date: 01-20-2019 : 1935 Admission Diagnosis: Attending: AILYN BAILEY Current LOS: 6 Anticipated DC Date: Planned Disposition: Primary Insurance: MEDICARE A & B Discharge Planning Comments: CM met with patient at bedside after explaining CM role and obtaining verbal consent. Patient lives at home alone and plans to return there upon discharge. Patient states he has family that lives all around him. Patient states he has Home Health with [facility] plans to resume care with them upon discharge. CM discussed availability / needs of home health and medical equipment. Patient denies any discharge needs at this time. Patient states he will have family drive him home upon discharge. CM will continue to follow and assist as needed with discharge planning / needs. Surgical Elastic Knitter: Ora Lin Appended by Ora Lin on 01/26/2019 19:04 CDT: CM was called back to patients room daughter and grand-daughter in room requesting for patient to be evaluated for Hospice. CM spoke with patient to see if he agrees for hospice to evaluate. YULIYA signed for [facility]. CM called and spoke with Aileen @ [facility] and faxed records. CM explained that patient and family was wanting more information. CM will continue to follow and assist as needed with discharge planning / needs. DCPIA - Discharge Planning Initial Assessment Updated by [email or web address]: Ora Lin on 01/26/19 6:57 pm * Is the patient Alert and Oriented? Yes * How many steps to enter\exit or inside your home? ramp * PCP BRIANA * Pharmacy [facility] * Preadmission Environment Home Alone * ADLs Independent * Other Equipment SCOTTER, HOME 02 & PORTABLE, NEBULIZER, WALKER * List name and contact numbers for known caregivers / representatives who currently or will assist patient after discharge: JENNY BENSON - [place]- [phone] * Verbal permission to speak to the caregivers and representatives has been obtained from the patient. Yes * Community resources currently utilized Home Health * Please name any agencies selected above. [facility] * Additional services required to return to the preadmission environment? No * Can the patient safely return to the preadmission environment? Yes * Has this patient been hospitalized within the prior 30 days at any hospital? No Last DP export: 01/26/19 6:01 pm Patient Name: CROW WALKER Page 27654 at 1914 All edits/amendments must be made on the electronic document DICTATION DATE: 01/26/191913 SALES MANAGEMENT INTERN: IRA 01/26/191913 RPT#: [id number] DC DATE: STATUS: ADM IN [facility] [address] [place] [address] END OF REPORT
--- NOTE | 2019-01-26 19:45 | NUR ---
LYING IN BED TALKING TO FAMILY. FAMILY REQUESTS DRSG BE APPLIED TO SKIN TEAR ON RT UPPER ARM WHERE MIDLINE WAS REMOVED. TELFA APPLIED AND WRAPPED WITH KERLIX AND SECURED WITH PAPER TAPE. PT LAMBERTO WELL. BUE ARE BRUISED AND SKIN IS THIN AND FRAGILE. SCABS NOTED TO FACE AND BUE. DRIED BLOOD NOTED IN BILAT NOSTRILS. ALERT AND ORIENTED X4. RESP LABORED. O2 @ 10L/HFC WITH HUMIDITY. GEN EDEMA NOTED. 2+ NOTED TO BLE. PEDAL PULSES WEAK. CAP REFILL >3 SEC IN BUE. LARGE BRUISE/HEMATOMA NOTED TO RT ABD/BACK. NONPROD FREQ COUGH. BBS CTA BUT DIMINISHED IN BLL. 1/2 NS @ 30 ML/HR INFUSING IN RT WRIST. MEDICATED WTIH TYLENOL FOR C/O GEN PAIN RATING 10. SR ELEVATED X2. CL IN REACH.
--- NOTE | 2019-01-26 21:23 | NUR ---
GRAND DAUGHTER AT BEDSIDE TALKING ON THE PHONE WITH HER MOTHER AND ASKING QUESTIONS ABOUT HIS MEDS. RELAYING INFO BACK AND FORTH OVER THE PHONE. PT REFUSED THE MUCINEX. DIDNT WANT INSULING GIVEN AT THIS TIME BUT PT REQUESTED IT GIVEN ORDERED. AFTER INSULIN WAS CHARTED HE THEN REFUSED IT. INSULIN WAS THEN DOCUMENTED REFUSED. FAMILY MICROMANAGING CARE AND MONOPOLIZING STAFF.
[2019-01-26 22:49] LABS: HEMATOCRIT 28.1 % (42.0-54.0); HEMOGLOBIN 9.4 g/dL (13.5-17.5)
[2019-01-27 00:17] VITALS: BP 136/64
[2019-01-27 03:07] LABS: PROTEIN C - ANTIGEN 162 % (60-150); PROTEIN C - FUNCTIONAL 188 % (73-180)
[2019-01-27 04:44] VITALS: BP 140/75
--- NOTE | 2019-01-27 05:15 | NUR ---
HAS BEEN AWAKE MOST OF THE NIGHT. RESTLESS. DRINKING COFFEE. MEDICATED FOR C/O GEN PAIN WITH TYLENOL. DRSG TO RT UPPER ARM CHANGED AND VASELINE GAUZE APPLIED, WRAPPED WITH KERLIX AND SECURED WITH PAPER TAPE ON KERLIX ONLY. CL IN REACH.
[2019-01-27 07:08] LABS: HEMATOCRIT 28.4 % (42.0-54.0); HEMOGLOBIN 9.5 g/dL (13.5-17.5); MCH 31.9 pg (26.0-34.0); MCHC 33.5 g/dL (31.0-37.0); MCV 95.3 fL (80.0-100.0); MEAN PLATELET VOLUME 10.3 fL (7.4-10.4); PLATELET COUNT 216 10x3/uL (130-400); RBC 2.98 10x6/uL (4.20-6.10); RDW 17.8 % (11.5-14.5); WBC 22.4 10x3/uL (4.8-10.8)
[2019-01-27 07:15] LABS: ANION GAP 12.7 mmol/L (8-16); CALCIUM 8.4 mg/dL (8.5-10.1); CARBON DIOXIDE 25.9 mmol/L (21.0-32.0); CREATININE - SERUM 1.3 mg/dL (0.6-1.3); POTASSIUM - SERUM 4.6 mmol/L (3.5-5.1)
[2019-01-27 07:52] VITALS: BP 142/79
--- NOTE | 2019-01-27 10:19 | NUR ---
PT RESTING IN BED. NO SIGNS OF DISTRESS. IV TO RIGHT HAND PATENT NO REDNESS OR TENDERNESS. ON 10L HIGH FLOW NC. HAS BRUISES ON ARMS AND ABDOMEN. DENIES ANY PAIN OR ANY NEED AT THIS TIME. CALL LIGHT IN REACH. BED LOW POSITION. FAMILY AT BEDSIDE.
[2019-01-27 11:16] LABS: LYMPHOCYTES 52 % (15-50); MONOCYTES 1 % (2-11); NEUTROPHILS 46 % (40-80); PLATELET ESTIMATE NORMAL
[2019-01-27 11:17] LABS: ROULEAUX OCC
[2019-01-27 13:36] LABS: HEMATOCRIT 27.9 % (42.0-54.0); HEMOGLOBIN 9.3 g/dL (13.5-17.5)
--- NOTE | 2019-01-27 15:07 | NUR ---
Nutrition Follow-up: Family reports pt ate ~25% of meal this AM. Diet: Diabetic Puree Last BM: 01/25 per chart Wt: 214# Labs noted: Glu 172 Meds noted: Solumedrol, Folate, Amaryl, Humulin Rec continue current diet as tolerated. +Glucerna with meals. [place] food preferences within diet restrictions. RD following.
[2019-01-27 18:08] LABS: LUPUS - THROMBIN NEUT 23.8 sec (0.0-23.0); LUPUS - THROMBIN TIME 39.1 sec (0.0-23.0); LUPUS - THROMBIN TIME MIX 25.5 sec (0.0-23.0); LUPUS - dRVVT 45.7 sec (0.0-47.0); PTT-LA 35.7 sec (0.0-51.9)
--- NOTE | 2019-01-27 19:10 | NUR ---
BEDSIDE REPORT RECEIVED FROM DAY SHIFT, PT CARE ASSUMED. PT SITTING UP IN BED, AAOX4, DENIES PAIN AND ANY OTHER NEEDS AT THIS TIME. DAUGHTER AT BEDSIDE. BED IN LOWEST POSITION, SR X2, CALL LIGHT WITHIN REACH. WILL CONTINUE TO MONITOR.
[2019-01-27 20:00] VITALS: BP 166/83
--- NOTE | 2019-01-27 20:27 | NUR ---
PT REQUESTING BEDSIDE COMMODE AT THIS TIME. ASSISTED PT TO BEDSIDE COMMODE WITH ANA CANO. PT TOLERATED WELL. CALL LIGHT WITHIN REACH.
--- NOTE | 2019-01-27 20:39 | NUR ---
ASSISTED PT BACK TO BED. PT TOLERATED WELL. SMALL AMOUNT OF SOFT BROWN STOOL NOTED. BED IN LOWEST POSITION, SR X2, CALL LIGHT WITHIN REACH. WILL CONTINUE TO MONITOR.
--- NOTE | 2019-01-27 21:45 | NUR ---
NIGHT TIME MEDS ADMINISTERED PER ORDER. FSBS 194, 4 UNITS OF INSULIN ADMINISTERED LEFT ARM SUBCUTANEOUSLY PER SLIDING SCALE. DAUGHTER AT BEDSIDE. DENIES PAIN AND OTHER NEEDS AT THIS TIME. BED IN LOWEST POSITION, SR X2, CALL LIGHT WITHIN REACH. WILL CONTINUE TO MONITOR.
--- NOTE | 2019-01-28 01:33 | NUR ---
PT HAD INCONTINENT INCIDENT WHILE SLEEPING, LINENS AND GOWN CHANGED. DAUGHTER AT BEDSIDE. DENIES PAIN OR ANY NEEDS AT THIS TIME. BED IN LOWEST POSITION, SR X2, CALL LIGHT WITHIN REACH. WILL CONTINUE TO MONITOR.
[2019-01-28 04:30] VITALS: BP 167/96
--- NOTE | 2019-01-28 04:52 | NUR ---
PT LYING IN BED WITH EYES CLOSED, RESPIRATIONS EVEN AND NONLABORED, NO S/S OF DISTRESS. EASILY AROUSED BY VOICE. ASSISTED TO BEDSIDE COMMODE, CALL LIGHT WITHIN REACH.
--- NOTE | 2019-01-28 05:30 | NUR ---
ASSISTED PT BACK TO BED. SMALL AMOUNT OF SOFT BROWN STOOL NOTED IN BEDSIDE COMMODE. FSBS 155, 4 UNITS INSULIN ADMINISTERED PER SLIDING SCALE. DAUGHTER AT BEDSIDE. DENIES PAIN OR ANY OTHER NEEDS AT THIS TIME. BED IN LOWEST POSITION, CALL LIGHT WITHIN REACH, SR X2. WILL CONTINUE TO MONITOR.
[2019-01-28 06:45] LABS: BASOPHILS 0.2 % (0-2); EOSINOPHILS 0 % (0-7); HEMATOCRIT 24.7 % (42.0-54.0); HEMOGLOBIN 8.2 g/dL (13.5-17.5); IMMATURE GRANULOCYTES 3.8 % (0-5); LYMPHOCYTES 57.8 % (15-50); MCH 30.8 pg (26.0-34.0); MCHC 33.2 g/dL (31.0-37.0); MCV 92.9 fL (80.0-100.0); MONOCYTES 4.6 % (2-11); NEUTROPHILS 33.6 % (40-80); PLATELET COUNT 198 10x3/uL (130-400); RBC 2.66 10x6/uL (4.20-6.10); RDW 17.7 % (11.5-14.5)
[2019-01-28 07:11] LABS: ANION GAP 15.5 mmol/L (8-16); CALCIUM 8.3 mg/dL (8.5-10.1); CARBON DIOXIDE 20.4 mmol/L (21.0-32.0); CREATININE - SERUM 1.2 mg/dL (0.6-1.3); POTASSIUM - SERUM 4.9 mmol/L (3.5-5.1)
[2019-01-28 09:45] VITALS: BP 93/44
--- NOTE | 2019-01-28 09:49 | NUR ---
AM MEDS GIVEN AT THIS TIME. PT A/O X4, PT A LITTLE SOB ON 11L HF, INSTRUCTED PT TO TAKE IN DEEP BREATHS IN THROUGH HER NOSE OUT HIS MOUTH. PT HAS BLOOD CLOT IN HIS NOSE, CLOT IN WAY UP IN HIS NOSE, WILL SEE IF CAN GET IT OUT. HELPED PT TO BATHROOM AND BACK TO BED. HAD BM. BP A LITTLE LOW BP MEDS HELD AT THIS TIME. PT DENIES ANY NEEDS AT THIS TIME. FAMILY AT BEDSIDE, CALL LIGHT IN REACH, NAD NOTED, WILL CONTINUE PLAN OF CARE.
--- NOTE | 2019-01-28 11:45 | NUR ---
BLOOD SUGAR OF 117, NO COVERAGE NEEDED PER S/S. PT RESTING COMFORTABLY IN BED, DENIES ANY NEEDS AT THIS TIME. CALL LIGHT IN REACH, FAMILY AT BEDSIDE, NAD NOTED, WILL CONTINUE TO MONITOR.
[2019-01-28 13:13] VITALS: BP 138/74
--- NOTE | 2019-01-28 13:57 | NUR ---
BATH DONE AT THIS TIME, WITH COMPLETE LINEN CHANGE. REMOVED BLOOD CLOT FROM PT NOSE. PT DENIES ANY OTHER NEEDS AT THIS TIME. CALL LIGHT IN REACH, FAMILY AT BEDSIDE, NAD NOTED, WILL CONTINUE TO MONITOR.
[2019-01-28 16:44] VITALS: BP 161/88
--- NOTE | 2019-01-28 19:07 | NUR ---
PATIENT RESTING IN BED WITH FAMILY AT BEDSIDE AND DENIES NEEDS AT THIS TIME. BED IN LOWEST POSITION AND CALL LIGHT WITHIN REACH. ENCOURAGED THE PATIENT TO CALL IF HE HAS NEEDS. WILL CONTINUE TO MONITOR.
[2019-01-28 19:54] VITALS: BP 129/76
[2019-01-29 00:21] VITALS: BP 145/89
--- NOTE | 2019-01-29 01:50 | NUR ---
ASSISTED PATIENT TO AND FROM BSC. PATIENT HAD A BM AND VOIDED. PATIENT DENIES OTHER NEEDS AT THIS TIME. BED IN LOWEST POSITION AND CALL LIGHT WITHIN REACH. ENCOURAGED THE PATIENT TO CALL IF HE HAS NEEDS. WILL CONTINUE TO MONITOR.
[2019-01-29 04:35] VITALS: BP 143/83
[2019-01-29 05:39] LABS: FACTOR II DNA ANALYSIS Negative (())
--- NOTE | 2019-01-29 06:11 | NUR ---
PATIENT STATED HIS BLADDER FEELS FULL. PATIENT HAS VOIDED X2 OVERNIGHT. SECOND TIME 125ML. BLADDER SCAN REVEALED 999ML
--- NOTE | 2019-01-29 06:27 | NUR ---
INSERTED 16F LANIER
[2019-01-29 06:36] LABS: CALCIUM 8.5 mg/dL (8.5-10.1); CHLORIDE - SERUM 101 mmol/L (98-107); GLUCOSE 101 mg/dL (74-106); SODIUM 134 mmol/L (136-145); eGFR NON AFRICAN AMERICAN 76 mL/min (90-120)
[2019-01-29 06:44] LABS: CALC OSMOLALITY 272 mosm/kg (275-300); CARBON DIOXIDE 26.2 mmol/L (21.0-32.0); UREA NITROGEN 26 mg/dL (7-18)
[2019-01-29 07:26] LABS: HEMATOCRIT 27.4 % (42.0-54.0); MCHC 32.8 g/dL (31.0-37.0); MCV 94.5 fL (80.0-100.0); MEAN PLATELET VOLUME 9.9 fL (7.4-10.4); PLATELET COUNT 221 10x3/uL (130-400); RDW 17.9 % (11.5-14.5); WBC 25.1 10x3/uL (4.8-10.8)
[2019-01-29 07:37] VITALS: BP 142/80
[2019-01-29 08:39] LABS: EOSINOPHILS 1 % (0-7); LYMPHOCYTES 54 % (15-50); MONOCYTES 1 % (2-11); NEUTROPHILS 34 % (40-80); PLATELET ESTIMATE NORMAL
[2019-01-29 08:41] LABS: ACANTHOCYTES OCC; ANISOCYTOSIS OCC; CRENATED CELLS OCC; POIKILOCYTOSIS OCC; POLYCHROMASIA OCC
--- NOTE | 2019-01-29 08:50 | NUR ---
AM MEDS GIVEN AT THIS TIME. PT WAS ABLE TO SWALLOW ALL PILLS WITHOUT ANY PROBLEMS. PT A/O X4, RESP EVEN BUT A LITTLE SHALLOW ON 11L HF. RT WRIST IV SL. LANIER DRAINGING GLORIA COLOR URINE TO GRAVITY. PT DENIES ANY NEEDS AT THIS TIME. FAMILY AT BEDSIDE, BEDSIDE RAILS X2, CALL LIGHT IN REACH, NAD NOTED, WILL CONTINUE PLAN OF CARE.
[2019-01-29 12:19] VITALS: BP 97/61
--- NOTE | 2019-01-29 16:04 | NUR ---
BLOOD SUGAR OF 231, 8UNITS OF INSULIN GIVEN PER S/S. DRESSING CHANGED TO RT UPPER ARM. PT RESTING COMFORTABLY IN BED, DENIES ANY NEEDS AT THIS TIME. CALL LIGHT IN REACH, NAD NOTED, WILL CONTINUE TO MONITOR.
[2019-01-29 16:29] VITALS: BP 95/62
--- NOTE | 2019-01-29 19:08 | NUR ---
PATIENT RESTING IN BED WITH FAMILY AT BEDSIDE AND NO S/S OF DISTRESS. PATIENT DENIES NEEDS AT THIS TIME. BED IN LOWEST POSITION AND CALL LIGHT WITHIN REACH. ENCOURAGED THE PATIENT TO CALL IF HE HAS NEEDS. WILL CONTINUE TO MONITOR.
[2019-01-29 19:30] VITALS: BP 114/49
--- NOTE | 2019-01-29 19:46 | NUR ---
PATIENT AMBULATING AROUND UNIT WITH FAMILY.
--- NOTE | 2019-01-30 00:31 | NUR ---
PATIENT'S DAUGHTER AT BEDSIDE. PATIENT RESTING WITH EYES CLOSED AND NO S/S OF DISTRESS. PATIENT'S DAUGHTER REFUSED MIDNIGHT VITALS AND 0100 BREATHING TREATMENT. ENCOURAGED THE DAUGHTER TO CALL IF THEY HAVE NEEDS. WILL CONTINUE TO MONITOR.
--- NOTE | 2019-01-30 00:32 | NUR ---
FAMILY AT BEDSIDE REFUSED UPDRAFT TX DUE TO PT SLEEPING
[2019-01-30 05:00] VITALS: BP 118/64
[2019-01-30 06:18] LABS: CALC OSMOLALITY 280 mosm/kg (275-300); CALCIUM 8.5 mg/dL (8.5-10.1); CARBON DIOXIDE 26.1 mmol/L (21.0-32.0); CHLORIDE - SERUM 104 mmol/L (98-107); CREATININE - SERUM 0.9 mg/dL (0.6-1.3); GLUCOSE 147 mg/dL (74-106); POTASSIUM - SERUM 4.2 mmol/L (3.5-5.1); SODIUM 137 mmol/L (136-145); UREA NITROGEN 23 mg/dL (7-18); eGFR NON AFRICAN AMERICAN 85 mL/min (90-120)
[2019-01-30 07:37] VITALS: BP 104/54
--- NOTE | 2019-01-30 08:15 | NUR ---
AM MEDS GIVEN AT THIS TIME. HELD NORVASC AND LOPRESSOR FOR LOW BP. PT A/O X4, RESP EVEN AND NONLABORED ON 7L HF. RT WRIST IV SL. LANIER DRAINING LIGHT YELLOW URINE TO GRAVITY. PT DENIES ANY NEEDS AT THIS TIME. BEDSIDE RAILS X2, FAMILY AT BEDSIDE, CALL LIGHT IN REACH, NAD NOTED, WILL CONTINUE PLAN OF CARE.
[2019-01-30 08:42] LABS: BASOPHILS 0.2 % (0-2); EOSINOPHILS 0.1 % (0-7); HEMATOCRIT 26.2 % (42.0-54.0); HEMOGLOBIN 8.6 g/dL (13.5-17.5); IMMATURE GRANULOCYTES 2.7 % (0-5); LYMPHOCYTES 48.8 % (15-50); MCH 30.8 pg (26.0-34.0); MCHC 32.8 g/dL (31.0-37.0); MCV 93.9 fL (80.0-100.0); MEAN PLATELET VOLUME 11.2 fL (7.4-10.4); MONOCYTES 4.8 % (2-11); NEUTROPHILS 43.4 % (40-80); PLATELET COUNT 207 10x3/uL (130-400); RBC 2.79 10x6/uL (4.20-6.10); RDW 17.9 % (11.5-14.5); WBC 28.3 10x3/uL (4.8-10.8)
--- NOTE | 2019-01-30 12:27 | NUR ---
BLOOD SUGAR OF 188, 4UNITS GIVEN PER S/S. HELPED PT UP TO CHAIR. PT DENIES ANY OTHER NEEDS AT THIS TIME. CALL LIGHT IN REACH, NAD NOTED, WILL CONTINUE TO MONITOR.
--- NOTE | 2019-01-30 13:08 | NUR ---
Nutrition Follow-up: Tolerating PO intake. Family reports possible d/c today. Diet: Diabetic Mechanical Soft; Glucerna with meals PO intake: 30% (01/29) Last BM: 01/29 Labs noted: Glu 147 Meds noted: Prednisone, Protonix, Folate, Amaryl, Humulin, Miralax Change Glucerna to 1x daily per pt request. RD following.
--- NOTE | 2019-01-30 13:15 | MORECARE ---
CASE MANAGEMENT DISCHARGE SUMMARY PATIENT: CROW WALKER UNIT: [id number] ADM DATE: 01/20/19 AGE: 83 : 34 SEX: M ROOM/BED: D.1204 AUTHOR: PEDRO,DOC PHYSICIAN: REFERRING PHYSICIAN: AILYN QUIGLEY MD DATE OF SERVICE: 01/30/19 Discharge Plan Patient Name: CROW WALKER Facility: [facility]:[place] : 1935 Planned Disposition: Anticipated Discharge Date: Discharge Date: Expected LOS: Initial Reviewer: [email or web address] Initial Review Date: 01/26/2019 Generated: 01/30/19 2:15 pm DCP- Discharge Planning Updated by [email or web address]: Ora Lin on 01/26/19 6:[address] Patient Name: CROW WALKER Admission Status: ER Accout number: [id number] Admission Date: 01-20-2019 : 1935 Admission Diagnosis: Attending: AILYN BAILEY Current LOS: 6 Anticipated DC Date: Planned Disposition: Primary Insurance: MEDICARE A & B Discharge Planning Comments: CM met with patient at bedside after explaining CM role and obtaining verbal consent. Patient lives at home alone and plans to return there upon discharge. Patient states he has family that lives all around him. Patient states he has Home Health with [facility] plans to resume care with them upon discharge. CM discussed availability / needs of home health and medical equipment. Patient denies any discharge needs at this time. Patient states he will have family drive him home upon discharge. CM will continue to follow and assist as needed with discharge planning / needs. Paper Products Printer: Ora Lin Appended by Ora Lin on 01/26/2019 19:04 CDT: CM was called back to patients room daughter and grand-daughter in room requesting for patient to be evaluated for Hospice. CM spoke with patient to see if he agrees for hospice to evaluate. YULIYA signed for [facility]. CM called and spoke with Aileen @ [facility] and faxed records. CM explained that patient and family was wanting more information. CM will continue to follow and assist as needed with discharge planning / needs. DCPIA - Discharge Planning Initial Assessment Updated by [email or web address]: Ora Lin on 01/26/19 6:57 pm * Is the patient Alert and Oriented? Yes * How many steps to enter\exit or inside your home? ramp * PCP BRIANA * Pharmacy [facility] * Preadmission Environment Home Alone * ADLs Independent * Other Equipment SCOTTER, HOME 02 & PORTABLE, NEBULIZER, WALKER * List name and contact numbers for known caregivers / representatives who currently or will assist patient after discharge: JENNY BENSON - [place]ENT[place]- [phone] * Verbal permission to speak to the caregivers and representatives has been obtained from the patient. Yes * Community resources currently utilized Home Health * Please name any agencies selected above. [facility] * Additional services required to return to the preadmission environment? No * Can the patient safely return to the preadmission environment? Yes * Has this patient been hospitalized within the prior 30 days at any hospital? No Coverage Notice Reviewer: [email or web address] Kristin Lin Notice Issued Date-Time: 01/26/2019 13:53 Notice Type: Patient Choice Letter Notice Delivered To: Patient Relationship to Patient: Self Pasteurizing Machine Operator Name: Delivery Method: HAND - Hand Delivered Nayana Days: Prior Verbal Notification: Recipient Understood Notice: Yes Recipient Signature: Yes Med Rec Note Co-signed by Attending: Coverage Notice Comment: [facility] Reviewer: [id number] - Oliva Bobo Notice Issued Date-Time: 01/30/2019 12:50 Notice Type: IM Discharge Notice Notice Delivered To: Patient Relationship to Patient: Pasteurizing Machine Operator Name: Delivery Method: HAND - Hand Delivered Nayana Days: Prior Verbal Notification: Recipient Understood Notice: Yes Recipient Signature: Yes Med Rec Note Co-signed by Attending: Coverage Notice Comment: Last DP export: 01/26/19 6:14 pm Patient Name: CROW WALKER Page [id number] at 1315 All edits/amendments must be made on the electronic document DICTATION DATE: 01/30/19 131 ASSISTANT FINANCE MANAGER: IRA 01/30/195 RPT#: [id number] DC DATE: STATUS: ADM IN [facility] [address] [place] [address] END OF REPORT
--- NOTE | 2019-01-30 13:23 | MORECARE ---
CASE MANAGEMENT DISCHARGE SUMMARY PATIENT: CROW WALKER UNIT: [id number] ADM DATE: 01/20/19 AGE: 83 : 34 SEX: M ROOM/BED: D.1204 AUTHOR: PEDRO,DOC PHYSICIAN: REFERRING PHYSICIAN: AILYN QUIGLEY MD DATE OF SERVICE: 01/30/19 Discharge Plan Patient Name: CROW WALKER Facility: [facility]:[place] : 1935 Planned Disposition: Anticipated Discharge Date: Discharge Date: Expected LOS: Initial Reviewer: [email or web address] Initial Review Date: 01/26/2019 Generated: 01/30/19 2:23 pm Comments DCP- Discharge Planning Updated by [id number]: Oliva Bobo on 01/30/19 12:[address] PATIENT WILL BE DISCHARGING HOME TODAY WITH [facility], PATIENT'S FAMILY AT BEDSIDE THEY DID NOT INPATIENT REHAB, THEY ARE CURRENT WITH [facility] AND [facility] WILL SEE THEM TODAY WHEN THEY ARE DISCHARGED. THEY HAVE ALL DME THAT THEY NEED. IMM SERVED AND EXPLAINED DCP- Discharge Planning Updated by [email or web address]: Ora Lin on 01/26/19 6:[address] Patient Name: CROW WALKER Admission Status: ER Accout number: [id number] Admission Date: 01-20-2019 : 1935 Admission Diagnosis: Attending: AILYN BAILEY Current LOS: 6 Anticipated DC Date: Planned Disposition: Primary Insurance: MEDICARE A & B Discharge Planning Comments: CM met with patient at bedside after explaining CM role and obtaining verbal consent. Patient lives at home alone and plans to return there upon discharge. Patient states he has family that lives all around him. Patient states he has Home Health with [facility] plans to resume care with them upon discharge. CM discussed availability / needs of home health and medical equipment. Patient denies any discharge needs at this time. Patient states he will have family drive him home upon discharge. CM will continue to follow and assist as needed with discharge planning / needs. Crime Laboratory Analyst: Ora Lin Appended by Ora Lin on 01/26/2019 19:04 CDT: CM was called back to patients room daughter and grand-daughter in room requesting for patient to be evaluated for Hospice. CM spoke with patient to see if he agrees for hospice to evaluate. YULIYA signed for [facility]. CM called and spoke with Aileen @ [facility] and faxed records. CM explained that patient and family was wanting more information. CM will continue to follow and assist as needed with discharge planning / needs. DCPIA - Discharge Planning Initial Assessment Updated by [email or web address]: Ora Lin on 01/26/19 6:57 pm * Is the patient Alert and Oriented? Yes * How many steps to enter\exit or inside your home? ramp * PCP BRIANA * Pharmacy [facility] * Preadmission Environment Home Alone * ADLs Independent * Other Equipment SCOTTER, HOME 02 & PORTABLE, NEBULIZER, WALKER * List name and contact numbers for known caregivers / representatives who currently or will assist patient after discharge: JENNY ELDRIDGE- [phone] * Verbal permission to speak to the caregivers and representatives has been obtained from the patient. Yes * Community resources currently utilized Home Health * Please name any agencies selected above. [facility] * Additional services required to return to the preadmission environment? No * Can the patient safely return to the preadmission environment? Yes * Has this patient been hospitalized within the prior 30 days at any hospital? No Coverage Notice Reviewer: [id number] - Ora Lin Notice Issued Date-Time: 01/26/2019 13:53 Notice Type: Patient Choice Letter Notice Delivered To: Patient Relationship to Patient: Self Experimental Rocket Sled Mechanic Name: Delivery Method: HAND - Hand Delivered Nayana Days: Prior Verbal Notification: Recipient Understood Notice: Yes Recipient Signature: Yes Med Rec Note Co-signed by Attending: Coverage Notice Comment: [facility] Reviewer: [id number] Kristin Bobo Notice Issued Date-Time: 01/30/2019 12:50 Notice Type: IM Discharge Notice Notice Delivered To: Patient Relationship to Patient: Experimental Rocket Sled Mechanic Name: Delivery Method: HAND - Hand Delivered Nayana Days: Prior Verbal Notification: Recipient Understood Notice: Yes Recipient Signature: Yes Med Rec Note Co-signed by Attending: Coverage Notice Comment: Last DP export: 01/30/19 12:15 pm Patient Name: CROW WALKER Page [phone] at 1323 All edits/amendments must be made on the electronic document DICTATION DATE: 01/30/19 1323 NEON TECHNICIAN: IRA 01/30/193 RPT#: [id number] DC DATE: STATUS: ADM IN [facility] [address] [place] [address] END OF REPORT
--- NOTE | 2019-01-30 13:38 | MORECARE ---
CASE MANAGEMENT DISCHARGE SUMMARY PATIENT: CROW WALKER UNIT: [id number] ADM DATE: 01/20/19 AGE: 83 : 34 SEX: M ROOM/BED: D.1204 AUTHOR: PEDRO,DOC PHYSICIAN: REFERRING PHYSICIAN: AILYN QUIGLEY MD DATE OF SERVICE: 01/30/19 Discharge Plan Patient Name: CROW WALKER Facility: [facility]:[place] : 1935 Planned Disposition: Anticipated Discharge Date: Discharge Date: Expected LOS: Initial Reviewer: [email or web address] Initial Review Date: 01/26/2019 Generated: 01/30/19 2:38 pm Comments DCP- Discharge Planning Updated by [email or web address]: Oliva Bobo on 01/30/19 12:[address] PATIENT WILL BE DISCHARGING HOME TODAY WITH [place], PATIENT'S FAMILY AT BEDSIDE THEY DID NOT INPATIENT REHAB, THEY ARE CURRENT WITH [place] [facility] AND [facility] WILL SEE THEM TODAY WHEN THEY ARE DISCHARGED. THEY HAVE ALL DME THAT THEY NEED. IMM SERVED AND EXPLAINED DCP- Discharge Planning Updated by [id number]: Ora Lin on 01/26/19 6:[address] Patient Name: CROW WALKER Admission Status: ER Accout number: [id number] Admission Date: 01-20-2019 : 1935 Admission Diagnosis: Attending: AILYN BAILEY Current LOS: 6 Anticipated DC Date: Planned Disposition: Primary Insurance: MEDICARE A & B Discharge Planning Comments: CM met with patient at bedside after explaining CM role and obtaining verbal consent. Patient lives at home alone and plans to return there upon discharge. Patient states he has family that lives all around him. Patient states he has Home Health with [facility] plans to resume care with them upon discharge. CM discussed availability / needs of home health and medical equipment. Patient denies any discharge needs at this time. Patient states he will have family drive him home upon discharge. CM will continue to follow and assist as needed with discharge planning / needs. Company Marker: Ora Lin Appended by Ora Lin on 01/26/2019 19:04 CDT: CM was called back to patients room daughter and grand-daughter in room requesting for patient to be evaluated for Hospice. CM spoke with patient to see if he agrees for hospice to evaluate. YULIYA signed for [facility]. CM called and spoke with Aileen @ [facility] and faxed records. CM explained that patient and family was wanting more information. CM will continue to follow and assist as needed with discharge planning / needs. DCPIA - Discharge Planning Initial Assessment Updated by [id number]: Ora Lin on 01/26/19 6:57 pm * Is the patient Alert and Oriented? Yes * How many steps to enter\exit or inside your home? ramp * PCP BRIANA * Pharmacy [facility] * Preadmission Environment Home Alone * ADLs Independent * Other Equipment SCOTTER, HOME 02 & PORTABLE, NEBULIZER, WALKER * List name and contact numbers for known caregivers / representatives who currently or will assist patient after discharge: JENNY ELDRIDGE- [phone] * Verbal permission to speak to the caregivers and representatives has been obtained from the patient. Yes * Community resources currently utilized Home Health * Please name any agencies selected above. [facility] * Additional services required to return to the preadmission environment? No * Can the patient safely return to the preadmission environment? Yes * Has this patient been hospitalized within the prior 30 days at any hospital? No External Providers [facility] Next Contact Date: Service Request Date: Service Type: Resolution: Reviewer: Comments: Coverage Notice Reviewer: [id number] Kristin Lin Notice Issued Date-Time: 01/26/2019 13:53 Notice Type: Patient Choice Letter Notice Delivered To: Patient Relationship to Patient: Self Barbed Wire Machine Operator Name: Delivery Method: HAND - Hand Delivered Nayana Days: Prior Verbal Notification: Recipient Understood Notice: Yes Recipient Signature: Yes Med Rec Note Co-signed by Attending: Coverage Notice Comment: [facility] Reviewer: [email or web address] Kristin Bobo Notice Issued Date-Time: 01/30/2019 12:50 Notice Type: IM Discharge Notice Notice Delivered To: Patient Relationship to Patient: Barbed Wire Machine Operator Name: Delivery Method: HAND - Hand Delivered Nayana Days: Prior Verbal Notification: Recipient Understood Notice: Yes Recipient Signature: Yes Med Rec Note Co-signed by Attending: Coverage Notice Comment: Last DP export: 01/30/19 12:23 pm Patient Name: CROW WALKER Page [phone] at 1338 All edits/amendments must be made on the electronic document DICTATION DATE: 01/30/191336 FUEL STORAGE TECHNICIAN: IRA 01/30/191336 RPT#: [id number] DC DATE: STATUS: ADM IN [facility] [address] [place] [address] END OF REPORT
--- NOTE | 2019-01-30 13:55 | EC ---
PATIENT:CROW WALKER DATE OF SERVICE: 01/20/19 SEX: M MEDICAL RECORD: [id number] DATE OF : [birth year] LOCATION:D.M3 D.120 AGE OF PATIENT: 83 ADMISSION DATE: 01/20/19 REFERRING PHYSICIAN: INTERPRETING PHYSICIAN: JOSIE PRECIADO MD ECHOCARDIOGRAM REPORT ECHO CHARGES 4 ECHO COMPLETE Date: 01/21/19 CLINICAL DIAGNOSIS: LVF ECHOCARDIOGRAPHIC MEASUREMENTS (adult normal given) AC root (d.<3.7cm) 3.2 cm LV Septum d (<1.2 cm> 1.0 cm Valve Excursion 1.9 cm LV Septum (systole) 1.1 cm Left Atria (s.<4.0cm> 3.3 cm LVPW d(<1.2cm) 1.3 cm RV (d.<2.3cm) 3.7 cm LVPW (sytole) 1.8 cm LV diastole(<5.6CM) 5.7 cm MV E-F(>70mm/sec) cm LV systole 5.1 cm LVOT Diameter 1.8 cm MV exc.(>10mm) cm Est.ejection fraction (50-75%) % DOPPLER: LVIT cm/sec A 34 cm/sec E 65 cm/sec LA cm/sec RVSP 45.2 mmHg LVOT 92 cm/sec AOP1/2T m/s Asc. Ao 140 cm/sec RVOT 64 cm/sec RA cm/sec PA 88 cm/sec AV Gradient Peak 7.8 mmHg AV Mean 4.0 mmHg AV Area 2.0 cm MV Gradient Peak 4.7 mmHg MV Mean 2.5 mmHg MV Area cm COMMENTS: Quill Reamer: Nisha DU Spinning Frame Cleaner: 3 Dr. Freeman TAPE# PACS Pericardial Effusion Y DATE OF SERVICE: 01/21/2019 Adequate 2D, color flow, spectral Doppler, and M-mode LVH is present. LV internal dimension is in the upper limits of normal 5.7 cm. LV is globally hypokinetic, reduced EF 30% to 35%. Aortic valve sclerosis without stenosis by Doppler interrogation. Left atrium is normal, mitral valve shows no prolapse. Trace MR. Right-sided chambers are grossly normal. Trace TR. ECHOCARDIOGRAM REPORT [id number] CROW WALKER TRANSINT:[id number] Voice Confirmation ID: [id number] DOCUMENT ID: [id number] JOSIE PRECIADO MD at 1355 CC: [id number] DICTATION DATE: 01/21/19 153 PRELOAD SUPERVISOR: 01/22/19 0146 ADM IN [place] [id number] [place] [id number]
--- NOTE | 2019-01-30 13:55 | CN ---
PATIENT NAME:CROW WALKER MEDICAL RECORD: [id number] : [birth year] LOCATION:DMarge D.1204 ADMIT DATE: 01/20/19 ACCOUNT: [id number] CONSULTING PHYSICIAN: JOSIE PRECIADO MD REFERRING PHYSICIAN: AILYN QUIGLEY MD DATE OF CONSULTATION: 01/22/2019 HISTORY OF PRESENT ILLNESS: An 83-year-old gentleman with known history of coronary artery disease, status post intervention to the right coronary most recently. He has history of sick sinus syndrome, status post pacemaker placement. He has history of pulmonary fibrosis, admitted with respiratory insufficiency. He had angina yesterday. This is resolving with improvement in respiratory status. Prior to this, he has had no recent increase in his angina pattern. We are asked to see him concerning his cardiovascular status. PAST MEDICAL HISTORY: Includes; 1. History of coronary artery disease. 2. Sick sinus syndrome with PAF, status post permanent pacemaker placement. 3. Mild idiopathic pulmonary fibrosis. ALLERGIES: CONTRAST, PENICILLIN, AND MICHEAL INHIBITOR. SOCIAL HISTORY: Nonsmoker and nondrinker. Good family support. He does try to stay active on a regular basis. REVIEW OF SYSTEMS: The patient reports easy bruising but reports no swollen glands. The patient reports no fever, no night sweats, no significant weight gain, no significant weight loss. No significant exercise tolerance. The patient reports no dry eyes, no irritation, no vision change. Patient reports no difficulty hearing and no ear pain. Patient reports no frequent nose bleeds or nose and sinus problems. Patient reports on arm pain on exertion. No shortness of breath while lying down. No history of heart murmur. Patient reports no cough, no wheezing or coughing up blood. Patient reports no abdominal pain, no vomiting. Normal appetite. No diarrhea and not vomiting blood. No nausea and no constipation. Patient reports no incontinence. No difficulty urinating. No hematuria. No increased frequency. Patient reports no muscle aches. No weakness, no arthralgias, no back pain. No swelling of the extremities. Patient reports no abnormal mole, no jaundice, no rashes. Reports no loss of consciousness. No weakness and no numbness. No seizures, dizziness, or headaches. The patient reports no depression, no sleep disturbance, feeling safe in a relationship and no alcohol abuse. Patient reports on fatigue. Reports no runny nose or sinus pressure. No itching, no hives, and no frequent sneezing. MEDICATIONS: Include albuterol, DuoNebs, amlodipine 5 mg p.o. daily, metoprolol 25 b.i.d., aspirin 81 daily, Amaryl 1 mg daily, and lovastatin 40 daily. PHYSICAL EXAMINATION: GENERAL: Pleasant gentleman, in no acute distress, appears stated age. HEENT: Normocephalic and atraumatic. NECK: No JVD or bruit. HEART: Regular. LUNGS: Castillo clear. ABDOMEN: Soft and nontender. EXTREMITIES: Pulse 2+. No edema. CONSULT REPORT [id number] CROW WALKER IMPRESSION: Angina, suspect demand ischemia secondary to underlying respiratory status. This has improved as his pulmonary status has improved. We will add Ranexa at least for the short term for cardioprotective effect. Further recommendations based on clinical course. TRANSINT:[id number] Voice Confirmation ID: [id number] DOCUMENT ID: [id number] JOSIE PRECIADO MD at 1355 CC: [id number] DICTATION DATE: 01/22/19 1254 FORM LAYER: 01/22/19 1422 ADM IN [facility] [address] [place] [address]
--- NOTE | 2019-01-30 14:22 | NUR ---
Reviewed patient's chart for the ARU and also spoke to the CM Juliet Zhong RN. He and his family have decided they will take him home and are still considering Hospice. Rehab Will no longer follow this patient. Aileen Gabriel RN CL
--- NOTE | 2019-01-30 15:56 | NUR ---
SPOKE WITH PT'S NURSE ABOUT ORDER. A LT UPPER EXT VENOUS WAS ORDERED BUT IN THE REASON FOR EXAM IT SAID HEMATOMA. SPOKE WITH THE NURSE AND SHE SAID IT WAS FOR THE HEMATOMA THAT WAS NEW ON THE LT UPPER FOREARM SO I CHANGED THE ORDER TO A SOFT TISSUE
--- NOTE | 2019-01-30 16:05 | NUR ---
RECEIVED RESULT ARM ULTRASOUND, RESULTS CALLED IN TO DR. GARVEY.
--- NOTE | 2019-01-30 16:26 | MORECARE ---
CASE MANAGEMENT DISCHARGE SUMMARY PATIENT: CROW WALKER UNIT: [id number] ADM DATE: 01/20/19 AGE: 83 : 34 SEX: M ROOM/BED: D.1204 AUTHOR: PEDRO,DOC PHYSICIAN: REFERRING PHYSICIAN: AILYN QUIGLEY MD DATE OF SERVICE: 01/30/19 Discharge Plan Patient Name: CROW WALKER Facility: [facility]:[place] : 1935 Planned Disposition: Anticipated Discharge Date: Discharge Date: Expected LOS: Initial Reviewer: [email or web address] Initial Review Date: 01/26/2019 Generated: 01/30/19 5:25 pm Comments DCP- Discharge Planning Updated by [email or web address]: Juliet Zhong on 01/30/19 3:[address] Discharge orders/Summary faxed to [facility], they will resume care. CM will continue to follow and assist with discharge planning/needs. DCP- Discharge Planning Updated by [email or web address]: Oliva Bobo on 01/30/19 12:[address] PATIENT WILL BE DISCHARGING HOME TODAY WITH [facility], PATIENT'S FAMILY AT BEDSIDE THEY DID NOT INPATIENT REHAB, THEY ARE CURRENT WITH [facility] AND [facility] WILL SEE THEM TODAY WHEN THEY ARE DISCHARGED. THEY HAVE ALL DME THAT THEY NEED. IMM SERVED AND EXPLAINED DCP- Discharge Planning Updated by [email or web address]: Ora Lin on 01/26/19 6:[address] Patient Name: CROW WALKER Admission Status: ER Accout number: [id number] Admission Date: 01-20-2019 : 1935 Admission Diagnosis: Attending: AILYN BAILEY Current LOS: 6 Anticipated DC Date: Planned Disposition: Primary Insurance: MEDICARE A & B Discharge Planning Comments: CM met with patient at bedside after explaining CM role and obtaining verbal consent. Patient lives at home alone and plans to return there upon discharge. Patient states he has family that lives all around him. Patient states he has Home Health with [facility] plans to resume care with them upon discharge. CM discussed availability / needs of home health and medical equipment. Patient denies any discharge needs at this time. Patient states he will have family drive him home upon discharge. CM will continue to follow and assist as needed with discharge planning / needs. Marketing Director Assisted Living: Ora Lin Appended by Ora Lin on 01/26/2019 19:04 CDT: CM was called back to patients room daughter and grand-daughter in room requesting for patient to be evaluated for Hospice. CM spoke with patient to see if he agrees for hospice to evaluate. YULIYA signed for [facility]. CM called and spoke with Aileen @ [facility] and faxed records. CM explained that patient and family was wanting more information. CM will continue to follow and assist as needed with discharge planning / needs. DCPIA - Discharge Planning Initial Assessment Updated by [id number]: Ora Lin on 01/26/19 6:57 pm * Is the patient Alert and Oriented? Yes * How many steps to enter\exit or inside your home? ramp * PCP BRIANA * Pharmacy [facility] * Preadmission Environment Home Alone * ADLs Independent * Other Equipment SCOTTER, HOME 02 & PORTABLE, NEBULIZER, WALKER * List name and contact numbers for known caregivers / representatives who currently or will assist patient after discharge: JENNY BENSON - CHENTE- [phone] * Verbal permission to speak to the caregivers and representatives has been obtained from the patient. Yes * Community resources currently utilized Home Health * Please name any agencies selected above. [facility] * Additional services required to return to the preadmission environment? No * Can the patient safely return to the preadmission environment? Yes * Has this patient been hospitalized within the prior 30 days at any hospital? No Coverage Notice Reviewer: [id number] - Ora Lin Notice Issued Date-Time: 01/26/2019 13:53 Notice Type: Patient Choice Letter Notice Delivered To: Patient Relationship to Patient: Self Key Operator Name: Delivery Method: HAND - Hand Delivered Nayana Days: Prior Verbal Notification: Recipient Understood Notice: Yes Recipient Signature: Yes Med Rec Note Co-signed by Attending: Coverage Notice Comment: [facility] Reviewer: [id number] - Oliva Bobo Notice Issued Date-Time: 01/30/2019 12:50 Notice Type: IM Discharge Notice Notice Delivered To: Patient Relationship to Patient: Key Operator Name: Delivery Method: HAND - Hand Delivered Nayana Days: Prior Verbal Notification: Recipient Understood Notice: Yes Recipient Signature: Yes Med Rec Note Co-signed by Attending: Coverage Notice Comment: Last DP export: 01/30/19 12:38 pm Patient Name: CROW WALKER Page [id number] at 1626 All edits/amendments must be made on the electronic document DICTATION DATE: 01/30/19 CERTIFIED PATHOLOGY ASSISTANT: IRA 01/30/191624 RPT#: [id number] DC DATE: STATUS: ADM IN [facility] [address] [place] [address] END OF REPORT
--- NOTE | 2019-01-30 18:35 | NUR ---
PROVIDED VERBAL AND WRITTEN DISCHARGE TEACHING TO PT AND FAMILY AT BEDSIDE, ALL VERBALIZED UNDERSTANDING REGARDING TEACHING. D/C RT WRIST IV WITH CATHETER TIP INTACT. PT LEFT UNIT VIA WHEELCHAIR, WITH ALL BELONGINGS, ACCOMPANIED BY FAMILY, NAD NOTED.
--- NOTE | 2019-01-31 08:56 | MORECARE ---
CASE MANAGEMENT DISCHARGE SUMMARY PATIENT: CROW WALKER UNIT: [id number] ADM DATE: 01/20/19 AGE: 83 : 34 SEX: M ROOM/BED: D.1204 AUTHOR: PEDRO,DOC PHYSICIAN: REFERRING PHYSICIAN: AILYN QUIGLEY MD DATE OF SERVICE: 01/31/19 Discharge Plan Patient Name: CROW WALKER Facility: [facility]:[place] : 1935 Planned Disposition: Anticipated Discharge Date: Discharge Date: 01/30/2019 Expected LOS: Initial Reviewer: [email or web address] Initial Review Date: 01/26/2019 Generated: 01/31/19 9:56 am Comments DCP- Discharge Planning Updated by [email or web address]: Juliet Zhong on 01/30/19 3:[address] Discharge orders/Summary faxed to [facility], they will resume care. CM will continue to follow and assist with discharge planning/needs. DCP- Discharge Planning Updated by [email or web address]: Oliva Bobo on 01/30/19 12:[address] PATIENT WILL BE DISCHARGING HOME TODAY WITH [facility], PATIENT'S FAMILY AT BEDSIDE THEY DID NOT INPATIENT REHAB, THEY ARE CURRENT WITH [facility] AND [facility] WILL SEE THEM TODAY WHEN THEY ARE DISCHARGED. THEY HAVE ALL DME THAT THEY NEED. IMM SERVED AND EXPLAINED DCP- Discharge Planning Updated by [email or web address]: Ora Lin on 01/26/19 6:[address] Patient Name: CROW WALKER Admission Status: ER Accout number: [id number] Admission Date: 01-20-2019 : 1935 Admission Diagnosis: Attending: AILYN BAILEY Current LOS: 6 Anticipated DC Date: Planned Disposition: Primary Insurance: MEDICARE A & B Discharge Planning Comments: CM met with patient at bedside after explaining CM role and obtaining verbal consent. Patient lives at home alone and plans to return there upon discharge. Patient states he has family that lives all around him. Patient states he has Home Health with [facility] plans to resume care with them upon discharge. CM discussed availability / needs of home health and medical equipment. Patient denies any discharge needs at this time. Patient states he will have family drive him home upon discharge. CM will continue to follow and assist as needed with discharge planning / needs. Welding Operator: Ora Lin Appended by Ora Lin on 01/26/2019 19:04 CDT: CM was called back to patients room daughter and grand-daughter in room requesting for patient to be evaluated for Hospice. CM spoke with patient to see if he agrees for hospice to evaluate. YULIYA signed for [facility]. CM called and spoke with Aileen [facility] and faxed records. CM explained that patient and family was wanting more information. CM will continue to follow and assist as needed with discharge planning / needs. DCPIA - Discharge Planning Initial Assessment Updated by [email or web address]: Ora Lin on 01/26/19 6:57 pm * Is the patient Alert and Oriented? Yes * How many steps to enter\exit or inside your home? ramp * PCP BRIANA * Pharmacy [facility] * Preadmission Environment Home Alone * ADLs Independent * Other Equipment SCOTTER, HOME 02 & PORTABLE, NEBULIZER, WALKER * List name and contact numbers for known caregivers / representatives who currently or will assist patient after discharge: JENNY BENSON - CHENTE- [phone] * Verbal permission to speak to the caregivers and representatives has been obtained from the patient. Yes * Community resources currently utilized Home Health * Please name any agencies selected above. [facility] * Additional services required to return to the preadmission environment? No * Can the patient safely return to the preadmission environment? Yes * Has this patient been hospitalized within the prior 30 days at any hospital? No Coverage Notice Reviewer: [id number] - Ora Lin Notice Issued Date-Time: 01/26/2019 13:53 Notice Type: Patient Choice Letter Notice Delivered To: Patient Relationship to Patient: Self Waste Water Operator Name: Delivery Method: HAND - Hand Delivered Nayana Days: Prior Verbal Notification: Recipient Understood Notice: Yes Recipient Signature: Yes Med Rec Note Co-signed by Attending: Coverage Notice Comment: [facility] Reviewer: [email or web address] Kristin Bobo Notice Issued Date-Time: 01/30/2019 12:50 Notice Type: IM Discharge Notice Notice Delivered To: Patient Relationship to Patient: Waste Water Operator Name: Delivery Method: HAND - Hand Delivered Nayana Days: Prior Verbal Notification: Recipient Understood Notice: Yes Recipient Signature: Yes Med Rec Note Co-signed by Attending: Coverage Notice Comment: Last DP export: 01/30/19 3:26 pm Patient Name: CROW WALKER Page [phone] at 0856 All edits/amendments must be made on the electronic document DICTATION DATE: 01/31/19 0856 FRONT DESK PERSON: IRA 01/31/1957 RPT#: [id number] DC DATE:01/30/19 STATUS: DIS IN [facility] [address] [place] [address] END OF REPORT
== END 2019-01-30 18:36 | disposition home health service (06) | DRG 193 ==
LOC: D.ER 11:31 → D.M3 14:32 → D.ICU 01-25 12:23 → D.M3 01-26 15:57
PROVIDERS: Family Medicine; Internal Medicine Hematology & Oncology; Internal Medicine Nephrology; Internal Medicine Pulmonary Disease; ADMIT Family Medicine; ATTEND Family Medicine
PROC: 05HB33Z Insertion of Infusion Device into Right Basilic Vein, Percutaneous Approach (ICD-10-PCS; principal; 2019-01-24)
PROC: B54MZZA Ultrasonography of Right Upper Extremity Veins, Guidance (ICD-10-PCS; 2019-01-24)
DX: J18.9 Pneumonia, unspecified organism (principal); J96.21 Acute and chronic respiratory failure with hypoxia; I50.33 Acute on chronic diastolic (congestive) heart failure; J44.1 Chronic obstructive pulmonary disease with (acute) exacerbation; I24.8 Other forms of acute ischemic heart disease; I82.403 Acute embolism and thrombosis of unspecified deep veins of lower extremity, bilateral; N17.9 Acute kidney failure, unspecified; C91.10 Chronic lymphocytic leukemia of B-cell type not having achieved remission; L76.01 Intraoperative hemorrhage and hematoma of skin and subcutaneous tissue complicating a dermatologic procedure; J44.0 Chronic obstructive pulmonary disease with (acute) lower respiratory infection; Z99.81 Dependence on supplemental oxygen; I48.0 Paroxysmal atrial fibrillation; I25.10 Atherosclerotic heart disease of native coronary artery without angina pectoris; J84.112 Idiopathic pulmonary fibrosis; D64.9 Anemia, unspecified; I11.0 Hypertensive heart disease with heart failure; E11.9 Type 2 diabetes mellitus without complications; R04.0 Epistaxis; Y84.9 Medical procedure, unspecified as the cause of abnormal reaction of the patient, or of later complication, without mention of misadventure at the time of the procedure; R91.1 Solitary pulmonary nodule; Z85.6 Personal history of leukemia

== ENCOUNTER 2019-03-16 10:47 | Inpatient (IN) | payer MEDICARE, OTHER ==
[~2019-03-16] VITALS: Ht 177.8 cm; Wt 95.6 kg
[2019-03-16] VITALS (12 sets, daily range): BP systolic 98–140; BP diastolic 60–85; BMI 29.3
[~2019-03-16 10:47] MED LIST changes: +ALBUTEROL2.5 MG/3 M; +HYDROCODON-ACE1 EAC7 PO; +LEVOFLOXACIN500 MG PO
[2019-03-16 11:34] LABS: APTT 25.6 SECONDS (22.8-39.4); INR 1.12 (0.85-1.17); PROTIME 13.9 SECONDS (11.6-15.0)
[2019-03-16 11:37] LABS: HEMATOCRIT 26.6 % (42.0-54.0); HEMOGLOBIN 8.1 g/dL (13.5-17.5); MCH 28.1 pg (26.0-34.0); MCHC 30.5 g/dL (31.0-37.0); MCV 92.4 fL (80.0-100.0); MEAN PLATELET VOLUME 9.5 fL (7.4-10.4); RBC 2.88 10x6/uL (4.20-6.10); RDW 17.5 % (11.5-14.5); WBC 15.3 10x3/uL (4.8-10.8)
[2019-03-16] MEDS ORDERED: LASIX20 MG PO (11:37)
[2019-03-16] MEDS ORDERED: PREDNISONE10 MG PO (11:37)
[2019-03-16 11:38] LABS: PLATELET COUNT 261 10x3/uL (130-400)
[2019-03-16] MEDS ORDERED: PULMICORT0.25 MG/1 INH (11:38)
[2019-03-16] MEDS ORDERED: BROVANA15 MCG/2 M INH (11:38)
[2019-03-16] MEDS ORDERED: RESTORIL15 MG PO (11:39)
[2019-03-16 11:40] LABS: ALBUMIN 2.7 g/dL (3.4-5.0); ANION GAP 13.8 mmol/L (8-16); BILIRUBIN - TOTAL 0.47 mg/dL (0.2-1.3); CALCIUM 8.3 mg/dL (8.5-10.1); CARBON DIOXIDE 24.4 mmol/L (21.0-32.0); CREATININE - SERUM 1.5 mg/dL (0.6-1.3); POTASSIUM - SERUM 4.2 mmol/L (3.5-5.1); PROTEIN - SERUM 5.1 g/dL (6.4-8.2)
[2019-03-16] MEDS ORDERED: MACROBID100 MG PO (11:40)
[2019-03-16 12:10] LABS: BASOPHILS 1 % (0-2); HYPOCHROMASIA 2+; LYMPHOCYTES 26 % (15-50); NEUTROPHILS 68 % (40-80); PLATELET ESTIMATE NORMAL
--- NOTE | 2019-03-16 13:30 | NUR ---
NURSE WENT TO START ANOTHER IV ON PT DUE TO PT HAVING ORDERS FOR BLOOD AND ABX AND PROTONIX. PT AND FAMILY MEMBER REFUSED FOR PT TO HAVE ANOTHER IV. PT AND FAMILY EDUCATED ON PT NEED FOR ABX AND PROTONIX DRIP. EDP NOTIFED. IVU NURSE DONNA THAT NURSE GAVE REPORT TO ALSO NOTIFIED OF PT REFUSING SECOND IV LINE.
--- NOTE | 2019-03-16 13:36 | MORECARE ---
CASE MANAGEMENT DISCHARGE SUMMARY PATIENT: CROW WALKER UNIT: [id number] ADM DATE: 03/16/19 AGE: 83 : 34 SEX: M ROOM/BED: D.2303 AUTHOR: PEDRO,DOC PHYSICIAN: REFERRING PHYSICIAN: MALINI SANCHEZ MD DATE OF SERVICE: 03/16/19 Discharge Plan Patient Name: CROW WALKER Facility: [facility]:[place] : 1935 Planned Disposition: Home with Hospice Anticipated Discharge Date: 03/18/19 Discharge Date: Expected LOS: 2 Initial Reviewer: [email or web address] Initial Review Date: 03/16/2019 Generated: 03/16/19 2:36 pm DCP- Discharge Planning Updated by [email or web address]: Bernarda Patricio on 03/16/19 12:[address] DC PLAN: Return home with [facility]. ANTICIPATED DC NEEDS: Resume [facility] - ALEKSANDR singed. CM met with patient, his daughter Homer WESTON, and multiple other family members to complete initial dc planning assessment. CM educated patient on the CM role and verbal consent given by patient to complete assessment. CM verified patient's address, phone number, and emergency contact phone numbers. Patient lives at home and his daughter Homer stays with him. She is his POA as well. She reports she has given the hospital a copy of his POA and we should have it on file. Patient is current with [facility], aleksandr presented, explained, and signed by his POA. Copy given to Homer and signed form placed in hospital admission packet that will go the the floor. At discharge patient plans to return home with resumption of [facility] and feels this is a safe discharge. CM discussed availability of home health, rehab services, and medical equipment Patient will transport by ambulance or by hospice arrangements according to the family. CM will continue to follow and will assist as needed with dc plans/needs. Bernarda Patricio RN, [facility] DCPIA - Discharge Planning Initial Assessment Updated by [email or web address]: Bernarda Patricio on 03/16/19 1:29 pm * Is the patient Alert and Oriented? Yes * How many steps to enter\exit or inside your home? Ramp * PCP Dr. Dunn was PCP Dr. Yuliana with [facility] is now the PCP. * Pharmacy [facility] or Hospice pharmacy * Preadmission Environment Hospice * Facility Name [facility] * ADLs Total Dependent * Equipment Walker * List name and contact numbers for known caregivers / representatives who currently or will assist patient after discharge: Homer Modi - daughter POA - [phone] * Verbal permission to speak to the caregivers and representatives has been obtained from the patient. Yes * Community resources currently utilized [facility] * Please name any agencies selected above. [facility] * Additional services required to return to the preadmission environment? No * Can the patient safely return to the preadmission environment? Yes * Has this patient been hospitalized within the prior 30 days at any hospital? No Patient Name: CROW WALKER Page [phone] at 1336 All edits/amendments must be made on the electronic document DICTATION DATE: 03/16/196 ELECTRICAL PANEL BUILDER: IRA 03/16/19 1336 RPT#: [id number] DC DATE: STATUS: ADM IN [facility] [address] [place] [address] END OF REPORT
--- NOTE | 2019-03-16 17:20 | NUR ---
1045 ARRIVED FRO;M ER VIA STRETCHER AWAKE ALERT ORIENTED ASSESSMENT COMPLETE NO C/O PAIN
--- NOTE | 2019-03-16 17:21 | NUR ---
1545 DR BLACK ARRIVED AT BEDSIDE AND SPOKE WITH PT AND FAMILY MEMBERS
--- NOTE | 2019-03-16 19:30 | NUR ---
PT A/OX4, VOICES NEEDS, LEFT PIV INTACT AND SL, O2 @ 4L VIA N/C, NO C/O @ THIS TIME
[2019-03-16 20:30] LABS: HEMOGLOBIN 9.5 g/dL (13.5-17.5)
--- NOTE | 2019-03-16 21:30 | NUR ---
RESTING QUIETLY, VITALS STABLE
--- NOTE | 2019-03-16 23:00 | NUR ---
PT SAT UP TO SIDE OF BED WITH ASSIST, UNABLE TO VOID, PT VOIDED AFTER RETURNING TO BED, CLEANED PER STAFF, SPECIMEN SENT TO LAB
[2019-03-16 23:28] LABS: APPEARANCE CLEAR (CLEAR); BILIRUBIN NEGATIVE (NEGATIVE); COLOR YELLOW (YELLOW); GLUCOSE 100 mg/dL (NEGATIVE); KETONE NEGATIVE (NEGATIVE); NITRITE NEGATIVE (NEGATIVE); PROTEIN TRACE mg/dL (NEGATIVE); UROBILINOGEN NORMAL (NORMAL)
[2019-03-16 23:30] LABS: BACTERIA FEW /hpf (NEGATIVE); EPITHELIAL CELLS 0-5 /hpf (0-5); RED CELLS - URINE 0-5 /hpf (0-5)
[2019-03-17] VITALS (26 sets, daily range): BP systolic 80–123; BP diastolic 23–72; BMI 29.4
--- NOTE | 2019-03-17 01:00 | NUR ---
PT SLEEPING WITHOUT DISTRESS
--- NOTE | 2019-03-17 03:00 | NUR ---
PT AWAKE, CONFUSED, SITTING ON SIDE OF BED, STATES HE NEEDS TO GET UP, CONVINCED PT TO RETURN TO BED, VITALS STABLE
[2019-03-17 03:14] LABS: HEMATOCRIT 29.4 % (42.0-54.0); HEMOGLOBIN 9.3 g/dL (13.5-17.5); MCH 28.2 pg (26.0-34.0); MCHC 31.6 g/dL (31.0-37.0); MCV 89.1 fL (80.0-100.0); MEAN PLATELET VOLUME 9.2 fL (7.4-10.4); PLATELET COUNT 225 10x3/uL (130-400); RDW 19.8 % (11.5-14.5); WBC 21.8 10x3/uL (4.8-10.8)
[2019-03-17 03:33] LABS: ANION GAP 14.6 mmol/L (8-16); CALCIUM 7.8 mg/dL (8.5-10.1); CARBON DIOXIDE 23.2 mmol/L (21.0-32.0); CREATININE - SERUM 1.2 mg/dL (0.6-1.3); MAGNESIUM - SERUM 1.8 mg/dL (1.8-2.4); POTASSIUM - SERUM 4.8 mmol/L (3.5-5.1)
[2019-03-17 03:47] LABS: LYMPHOCYTES 40 % (15-50); NEUTROPHILS 60 % (40-80); PLATELET ESTIMATE NORMAL; SMUDGE CELLS 1+
--- NOTE | 2019-03-17 05:15 | NUR ---
DAUGHTER AT BEDSIDE, PT PULLED OFF O2, REPLACED O2 AND SPO2 LEAD, TAKES PO WITHOUT DIFFICULTY
--- NOTE | 2019-03-17 07:54 | NUR ---
0700 IN BED CONFUSED BED ALARM ACTIVATED ASSESSMENT COMPLETE
[2019-03-17 11:05] LABS: HEMATOCRIT 25.2 % (42.0-54.0); HEMOGLOBIN 8.3 g/dL (13.5-17.5)
[2019-03-17 15:54] LABS: HEMATOCRIT 25.1 % (42.0-54.0)
[2019-03-17 15:58] LABS: HEMOGLOBIN 7.5 g/dL (13.5-17.5)
--- NOTE | 2019-03-17 16:57 | NUR ---
0900 FAMILY MEMBER AT BEDSIDE ASSISTING WITH CLEAR LIQUID MEAL APPETITE POOR.
--- NOTE | 2019-03-17 16:58 | NUR ---
1100 CBS 104 NO INSULIN INDICATED AT PRESENT
--- NOTE | 2019-03-17 16:59 | NUR ---
1300 HCG BATH COMPLETE WITH COMPLETE LINEN CARE MODERATE SIZE BM WITH SMALL BLOOD CLOTSNOTED
--- NOTE | 2019-03-17 17:49 | MORECARE ---
CASE MANAGEMENT DISCHARGE SUMMARY PATIENT: CROW WALKER UNIT: [id number] ADM DATE: 03/16/19 AGE: 83 : 34 SEX: M ROOM/BED: D.2303 AUTHOR: PEDRO,DOC PHYSICIAN: REFERRING PHYSICIAN: MALINI SANCHEZ MD DATE OF SERVICE: 03/17/19 Discharge Plan Patient Name: CROW WALKER Facility: [facility]:[place] : 1935 Planned Disposition: Home with Hospice Anticipated Discharge Date: 03/18/19 Discharge Date: Expected LOS: 2 Initial Reviewer: [email or web address] Initial Review Date: 03/16/2019 Generated: 03/17/19 6:49 pm Comments DCP- Discharge Planning Updated by [email or web address]: Ora Lin on 03/17/19 4:[address] CM spoke with Bernice at [facility] [phone]. CM confirmed that patient is on Hospice and it has NOT been revoked. Bernice stated she would fax over records. Bernice stated that as long as patient isn't receiving aggressive treatment for COPD then that it should be fine. CM asked about updraft treatments she stated that the patient was getting updraft treatments at home and that it was fine to continue his home medications. Patient also has trilogy machine at home if needed for respiratory care. CM notified nursing staff of this information. CM will continue to follow and assist as needed with discharge planning / needs. DCP- Discharge Planning Updated by [email or web address]: Bernarda Patricio on 03/16/19 12:[address] DC PLAN: Return home with [facility] services. ANTICIPATED DC NEEDS: Resume [facility] - ALEKSANDR singed. CM met with patient, his daughter Homer WESTON, and multiple other family members to complete initial dc planning assessment. CM educated patient on the CM role and verbal consent given by patient to complete assessment. CM verified patient's address, phone number, and emergency contact phone numbers. Patient lives at home and his daughter Homer stays with him. She is his POA as well. She reports she has given the hospital a copy of his POA and we should have it on file. Patient is current with [facility], aleksandr presented, explained, and signed by his POA. Copy given to Homer and signed form placed in hospital admission packet that will go the the floor. At discharge patient plans to return home with resumption of [facility] and feels this is a safe discharge. CM discussed availability of home health, rehab services, and medical equipment Patient will transport by ambulance or by hospice arrangements according to the family. CM will continue to follow and will assist as needed with dc plans/needs. Bernarda Patricio RN, [facility] DCPIA - Discharge Planning Initial Assessment Updated by [email or web address]: Bernarda Patricio on 03/16/19 1:29 pm * Is the patient Alert and Oriented? Yes * How many steps to enter\exit or inside your home? Ramp * PCP Dr. Dunn was PCP Dr. Bridges with [facility] is now the PCP. * Pharmacy [facility] or Hospice pharmacy * Preadmission Environment Hospice * Facility Name [facility] * ADLs Total Dependent * Equipment Walker * List name and contact numbers for known caregivers / representatives who currently or will assist patient after discharge: Homer Modi - daughter POCorry - [phone] * Verbal permission to speak to the caregivers and representatives has been obtained from the patient. Yes * Community resources currently utilized [facility] * Please name any agencies selected above. [facility] * Additional services required to return to the preadmission environment? No * Can the patient safely return to the preadmission environment? Yes * Has this patient been hospitalized within the prior 30 days at any hospital? No Last DP export: 03/16/19 12:36 p Patient Name: CROW WALKER Page 50938 at 174 All edits/amendments must be made on the electronic document DICTATION DATE: 03/17/191748 SCRAPER MEAT: IRA 03/17/191748 RPT#: [id number] DC DATE: STATUS: ADM IN [facility] [address] [place] [address] END OF REPORT
--- NOTE | 2019-03-17 19:10 | NUR ---
PTS DAUGHTER ASKING FOR PAIN MEDICATION "HE NEEDS ANOTHER NORCO HE DOESNT SLEEP UNLESS HE HAS HAD PHENEGRAN OR PAIN PILL" INFORMED OF ORDERS PER PT RESTING QUIETLY WITH EYES CLOSED DENIES PAIN AT THIS TIME. INFORMED DAUGHTER WILL ASSESS PTS PAIN LEVEL OFTEN AND MEDICATE PRN ORDERS.
--- NOTE | 2019-03-17 19:46 | NUR ---
1500 FAMILY MEMBERS AT BEDSIDE WAITING ON DR GNOZALEZ
--- NOTE | 2019-03-17 19:47 | NUR ---
1700 C/O NECK PAIN NORCO 7.5 MG GIVEN PO
[2019-03-17 20:39] LABS: HEMATOCRIT 20.6 % (42.0-54.0)
[2019-03-17 20:46] LABS: HEMOGLOBIN 6.7 g/dL (13.5-17.5)
--- NOTE | 2019-03-17 20:50 | NUR ---
PAGED DR GONZALEZ [phone] DUE TO PTS HGB DROP CRITICAL LEVEL
--- NOTE | 2019-03-17 21:48 | NUR ---
DR BONILLA PAGED FOR CONSULT NEW ORDERS NOTED
--- NOTE | 2019-03-17 22:30 | NUR ---
UPDATED DAUGHTER OF HGB LEVEL LOWER THAN PREVIOUS AND THAT SUPERVISOR GROWER WAS CONSULTED DR BONILLA FOR MANAGEMENT SINCE NO GI COVERAGE OVER WEEKEND. SHE STATED THE LAST SHE HEARD HIS HGB WAS 8.SOMETHING. INFORMED IT HAD DROPPED AND THAT DR BONILLA HAD ORDERED BLOOD AND FFP TRANSFUSION. PTS DAUGHTER WANTING TO STAY BACK IN ROOM WITH PATIENT INFORMED AND EDUCATED ON VISTIATION TIMES. SHE SAID "WELL HE WILL REST BETTER WITH ANOTHER PAIN PILL" PT RESTING QUIETLY WITH EYES CLOSED DENIES PAIN INFORMED CAN NOT GIVE PAIN PILL FOR REST WITHOUT PAIN.
--- NOTE | 2019-03-17 22:46 | NUR ---
LEFT WRIST 18 GUAGE CHECKED PRIOR TO TRANSFUSIONS GOOD BLOOD RETURN AND FLUSHES EASILY
[2019-03-18] VITALS (15 sets, daily range): BP systolic 90–151; BP diastolic 42–101; Ht 177.8 cm; Wt 95.6 kg
--- NOTE | 2019-03-18 02:40 | NUR ---
IN TO CHECK PRBC INFUSION AND VITALS PT C/O NECK PAIN REPOSITIONED FOR COMFORT ASKED IF PT WANTED PAIN PILL HE SAID "YES" MEDICATED SEE EMAR PRN MEDS
--- NOTE | 2019-03-18 04:30 | NUR ---
PTS DAUGHTER/GRANDDAUGHTER AT BEDSIDE FOR VISITATION UPDATE GIVEN
--- NOTE | 2019-03-18 05:06 | NUR ---
PT STILL RECEIVING PRBC WILL WAIT FOR AB LABS POST TRANSFUSION
--- NOTE | 2019-03-18 09:09 | NUR ---
0700 ASLEEP REPOSITIONED IN BED PLACED BED BERNAL PER PT REQUEST ASSESSMENT COMPLETE PRBCS INFUSING TO LEFT WRIST
--- NOTE | 2019-03-18 09:10 | NUR ---
0900 LARGE BLOODY BM NOTED NOTIFIED DR BONILLA NEW ORDER FOR NUCLEAR MED BLEED SCAN NOTED. CALLED IN DRILL PRESSER TO COME IN FOR SCAN
--- NOTE | 2019-03-18 09:29 | NUR ---
7851 LARGE BLOODY STOOL NOTED AGAIN. TOTAL [address] BONILLA
--- NOTE | 2019-03-18 09:36 | NUR ---
9672 DR BONILLA RETURNED CALL NEW ORDERS NOTED
[2019-03-18 11:08] LABS: HEMATOCRIT 23.5 % (42.0-54.0); HEMOGLOBIN 7.7 g/dL (13.5-17.5)
[2019-03-18 11:10] LABS: BASOPHILS 0.1 % (0-2); EOSINOPHILS 0.3 % (0-7); HEMATOCRIT 23.1 % (42.0-54.0); IMMATURE GRANULOCYTES 2.7 % (0-5); LYMPHOCYTES 37.6 % (15-50); MCH 27.8 pg (26.0-34.0); MCHC 32.5 g/dL (31.0-37.0); MCV 85.6 fL (80.0-100.0); MEAN PLATELET VOLUME 9.4 fL (7.4-10.4); NEUTROPHILS 52.3 % (40-80); PLATELET COUNT 134 10x3/uL (130-400); RDW 18.5 % (11.5-14.5); WBC 15.8 10x3/uL (4.8-10.8)
[2019-03-18 11:11] LABS: HEMOGLOBIN 7.5 g/dL (13.5-17.5)
[2019-03-18 11:37] LABS: ANION GAP 15.7 mmol/L (8-16); CARBON DIOXIDE 22.9 mmol/L (21.0-32.0); CREATININE - SERUM 1.4 mg/dL (0.6-1.3); MAGNESIUM - SERUM 1.8 mg/dL (1.8-2.4); PHOSPHOROUS 2.4 mg/dL (2.5-4.9); POTASSIUM - SERUM 4.6 mmol/L (3.5-5.1)
--- NOTE | 2019-03-18 12:05 | NUR ---
0900 LAST PRBC OF THREE COMPLETED
--- NOTE | 2019-03-18 12:07 | NUR ---
1131 FFP AND PLATELETS BOTH INFUSED. TXA INFUSION COMPLETE
--- NOTE | 2019-03-18 13:39 | NUR ---
0800 DR BONILLA SPOKE WITH FAMILY RE TO GI BLEED FAMILY IN ICU WAITING ROOM
--- NOTE | 2019-03-18 13:39 | NUR ---
4267 PATIENT RETURNED FROM [facility] SCAN DAUGHTER SIGNED COMSENTS
--- NOTE | 2019-03-18 13:41 | NUR ---
3340 COLONOSCOPY IN PROGRESS
--- NOTE | 2019-03-20 09:12 | MORECARE ---
CASE MANAGEMENT DISCHARGE SUMMARY PATIENT: CROW WALKER UNIT: [id number] ADM DATE: 03/16/19 AGE: 83 : 33 SEX: M ROOM/BED: D.2303 AUTHOR: PEDRODOC PHYSICIAN: REFERRING PHYSICIAN: MALINI SANCHEZ MD DATE OF SERVICE: 03/20/19 Discharge Plan Patient Name: CROW WALKER Facility: [facility]:[place] : 1935 Planned Disposition: Home with Hospice Anticipated Discharge Date: 03/18/19 Discharge Date: 03/18/2019 Expected LOS: 2 Initial Reviewer: [email or web address] Initial Review Date: 03/16/2019 Generated: 03/20/19 10:11 am Comments DCP- Discharge Planning Updated by [email or web address]: Ora Morganr on 03/17/19 4:[address] CM spoke with Bernice at [facility] [phone]. CM confirmed that patient is on Hospice and it has NOT been revoked. Bernice stated she would fax over records. Bernice stated that as long as patient isn't receiving aggressive treatment for COPD then that it should be fine. CM asked about updraft treatments she stated that the patient was getting updraft treatments at home and that it was fine to continue his home medications. Patient also has trilogy machine at home if needed for respiratory care. CM notified nursing staff of this information. CM will continue to follow and assist as needed with discharge planning / needs. DCP- Discharge Planning Updated by [email or web address]: Bernarda Patricio on 03/16/19 12:[address] DC PLAN: Return home with [facility] services. ANTICIPATED DC NEEDS: Resume [facility] - ALEKSANDR singed. CM met with patient, his daughter Homer WESTON, and multiple other family members to complete initial dc planning assessment. CM educated patient on the CM role and verbal consent given by patient to complete assessment. CM verified patient's address, phone number, and emergency contact phone numbers. Patient lives at home and his daughter Homer stays with him. She is his POA as well. She reports she has given the hospital a copy of his POA and we should have it on file. Patient is current with [facility], aleksandr presented, explained, and signed by his POA. Copy given to Homer and signed form placed in hospital admission packet that will go the the floor. At discharge patient plans to return home with resumption of [facility] and feels this is a safe discharge. CM discussed availability of home health, rehab services, and medical equipment Patient will transport by ambulance or by hospice arrangements according to the family. CM will continue to follow and will assist as needed with dc plans/needs. Bernarda Patricio RN, [facility] DCPIA - Discharge Planning Initial Assessment Updated by [email or web address]: Bernarda Patricio on 03/16/19 1:29 pm * Is the patient Alert and Oriented? Yes * How many steps to enter\exit or inside your home? Ramp * PCP Dr. Dunn was PCP Dr. Bridges with [facility] is now the PCP. * Pharmacy [facility] or [facility] * Preadmission Environment [facility]osp[facility] * Facility Name [facility] * ADLs Total Dependent * Equipment Walker * List name and contact numbers for known caregivers / representatives who currently or will assist patient after discharge: Homer Modi - daughter POA - [phone] * Verbal permission to speak to the caregivers and representatives has been obtained from the patient. Yes * Community resources currently utilized [facility] * Please name any agencies selected above. [facility] * Additional services required to return to the preadmission environment? No * Can the patient safely return to the preadmission environment? Yes * Has this patient been hospitalized within the prior 30 days at any hospital? No Last DP export: 03/17/19 4:49 p Patient Name: CROW WALKER Page [id number] at 0912 All edits/amendments must be made on the electronic document DICTATION DATE: 03/20/19910 ELECTRICAL TEST ENGINEER: IRA 03/20/19910 RPT#: [id number] DC DATE:03/18/19 STATUS: DIS IN [facility] [address] [place] [address] END OF REPORT
--- NOTE | 2019-03-21 17:05 | OP ---
PATIENT NAME: CROW WALKER MEDICAL RECORD: [id number] :33 LOCATION:D.ICU D.2303 ADMISSION DATE:03/16/19 SURGEON: JUDE BONILLA MD DATE OF OPERATION: 03/18/2019 PREOPERATIVE DIAGNOSES: 1. Lower gastrointestinal bleeding. 2. Acute blood loss anemia requiring transfusion. POSTOPERATIVE DIAGNOSES: 1. Lower gastrointestinal bleeding. 2. Acute blood loss anemia requiring transfusion. 3. Post-procedure cardiopulmonary arrest and . PROCEDURE: 1. Total colonoscopy to cecum. 2. Insertion of right groin triple lumen central venous catheter. SURGEON: Jude Bonilla MD ASSOCIATE FINANCIAL PLANNER: None. BLOOD LOSS: No new acute blood loss, however, there was a large amount of blood within the colon or rectum. The risks, possible complications, and alternatives to the procedure were explained to the patient's family. They elected to proceed. The patient had been on hospice. This was for end-stage lung disease. He was brought to the hospital and is being treated because his current condition is unrelated to the reason he was placed on hospice. The patient's family expressed their wish that he not be intubated and mechanically ventilated. We told them that would be find; however, we would need to resend the DNR order during the procedure. They understood this. Alban Boyd, the associate software developer, also discussed this with him. ENDOSCOPIC COURSE: After a nuclear medicine bleeding study had shown a bleeding area that appeared to be near the splenic flexure, I called in the GI crew. They came in very quickly and we were able to begin the patient's colonoscopy after discussing the planned procedure with the patient as well as with his family. IV sedation was induced by the anesthesia staff. The patient was placed in the Harris position. A digital rectal examination was performed. A colonoscope was inserted through the anus. It was easily advanced to the cecum. There was blood throughout the entire colon and rectum. I slowly withdrew the endoscope. I irrigated and aspirated extensively. The patient began having some hypotension and then some desaturations. This was near the end of the colonoscopy. I removed the colonoscope. It was soon after this that we began to bag valve mask ventilating the patient. While doing this, the patient developed a cardiac arrest and we began with CPR. In order to better ventilate the patient an LMA was inserted by associate software developer Oliver. Medications were given. We have ample staff for the code blue resuscitation. During this period of time, I placed a right groin central venous catheter as we needed additional IV access, which had been difficult to maintain earlier by the ICU nurses. OPERATIVE REPORT [id number] CROW WALKER The right groin was sterilely prepped and draped as CPR was going on. I percutaneously accessed the right common femoral vein in an antegrade fashion. A guidewire passed easily. A small skin wilbur was accomplished. A vessel dilator was used to dilate the subcutaneous tract. A 16-cm triple lumen central venous catheter was inserted to the hub. It was sutured in place times 2. All lumens flushed easily and aspirated dark, nonpulsatile blood. I instructed the staff to begin using the central venous line immediately. We began to getting blood products as well as crystalloid. We were able to regain a pulse. The patient actually had some respiratory activity as well. I spoke to the patient's family. They stated that they wanted to cease resuscitation efforts. They came to the patient's bedside. We left the LMA in, but removed the Ambu bag. The patient continued to have respiratory effort for a little while and then he at 1430 hours, surrounded by his loving family. TRANSINT:[id number] Voice Confirmation ID: [id number] DOCUMENT ID: [id number] 03/20/2019 Edited for shoe dyer error, dmm. JUDE BONILLA MD at 1705 CC: MAEGAN SANCHEZ [id number] DICTATION DATE: 03/18/191656 KISS MIXER: 03/18/191918 DIS IN 03/18/19 [facility] [address] [place] [address]
== END 2019-03-18 18:27 | DRG 377 ==
LOC: D.ER 10:47 → D.ICU 12:59
PROVIDERS: Emergency Medicine; Family Medicine; Internal Medicine Gastroenterology; Surgery; ADMIT Emergency Medicine; ATTEND Emergency Medicine
PROC: 0DJD8ZZ Inspection of Lower Intestinal Tract, Via Natural or Artificial Opening Endoscopic (ICD-10-PCS; principal; 2019-03-17)
PROC: 06HY33Z Insertion of Infusion Device into Lower Vein, Percutaneous Approach (ICD-10-PCS; 2019-03-17)
DX: K92.2 Gastrointestinal hemorrhage, unspecified (principal); J18.1 Lobar pneumonia, unspecified organism; I50.23 Acute on chronic systolic (congestive) heart failure; J95.821 Acute postprocedural respiratory failure; N17.9 Acute kidney failure, unspecified; J44.1 Chronic obstructive pulmonary disease with (acute) exacerbation; D62 Acute posthemorrhagic anemia; E11.65 Type 2 diabetes mellitus with hyperglycemia; I11.0 Hypertensive heart disease with heart failure; I71.9 Aortic aneurysm of unspecified site, without rupture; E78.5 Hyperlipidemia, unspecified; J84.10 Pulmonary fibrosis, unspecified; Z85.6 Personal history of leukemia; I46.9 Cardiac arrest, cause unspecified